=== PATIENT | female | born 1975 | race Caucasian/White ===

== ENCOUNTER 2018-06-25 19:49 | Inpatient (IN) ==
--- NOTE | 2018-06-25 20:33 | ED ---
HPI General Chief Complaint: Shortness of Breath/Dyspnea Stated Complaint: sob/evac Time Seen by Provider: 06/25/18 20:12 Source: patient and EMS Mode of arrival: EMS Limitations: no limitations History of Present Illness 43-year-old female complains of wheezing and shortness of breath and coughing congestion. Patient states that she was treated for pneumonia 2 weeks ago with Z-Dirk, prednisone and albuterol inhaler. Patient has history of COPD. Patient is a smoker. Patient states that the symptoms are better and get worse again for the past several days. Patient visiting from [facility]. Patient states that she also had intermittent substernal chest pain worse with deep coughing and breathing. Patient denies any chest pain radiation. Patient denies palpitation diaphoresis. Patient states that she had mild intermittent headache also. Patient denies any visual change. Patient denies any neck pain. Patient denies any fever chills. EMS was called. Patient was given albuterol treatment x2 prior to arrival. Complaint: Reports shortness of breath, cough, pain with inspiration and chest pain Onset (ago): day(s) Context: Reports recent illness Severity: moderate Consistency/Duration: intermittent Relieving factors: nothing Exacerbating factors: nothing Known history of: Reports COPD Associated symptoms: Reports chest pain, cough and wheezing Treatment prior to arrival: Reports oxygen and bronchodilator Related Data Home Medications Medication Instructions Recorded Confirmed albuterol sulfate 2.5 mg INHALATION Q4H PRN 06/25/18 06/25/18 hydroxyzine HCl 10 mg PO QID PRN 06/25/18 06/25/18 omeprazole magnesium [Prilosec OTC] 20 mg PO DAILY 06/25/18 06/25/18 sertraline [Zoloft] 25 mg PO DAILY 06/25/18 06/25/18 trazodone 100 mg PO DAILY 06/25/18 06/25/18 Allergies Allergy/AdvReac Type Severity Reaction Status Date / Time ketorolac [From Toradol] Allergy Hives Verified 06/25/18 20:03 Penicillins Allergy Hives Verified 06/25/18 20:03 Review of Systems ROS: all other systems reviewed are negative PMFSH Social History Social History Substance History: Active Abuse Second Hand Smoke Exposure: Yes Smoking Status: Current every day smoker Tobacco Type: Cigarettes How Often Do You Have a Drink Containing Alcohol: 2 to 4 times a month Recent Travel in [place] within the Last 8 Weeks: No Recent Out of Country Travel within the Last 8 Weeks: No Substance Abuse Detail Marijuana: Substance Use Status: Active Route Used Substance Abuse: By Mouth and Inhalation Reason for Use: Feels Good Immunization History Tetanus Immunization: Unsure Exam Narrative Exam Narrative: GENERAL: Well-nourished, well-developed patient. SKIN: Focused skin assessment warm/dry. HEAD: Normocephalic. EYES: No scleral icterus. No injection or drainage. NECK: Supple, trachea midline. No JVD or lymphadenopathy. CARDIOVASCULAR: Mild tachycardia rate and rhythm without murmurs, gallops, or rubs. RESPIRATORY: Patient has diffuse rhonchi bilaterally. Mild expiratory wheezes. GASTROINTESTINAL: Abdomen soft, non-tender, nondistended. MUSCULOSKELETAL: No cyanosis, or edema. BACK: Nontender without obvious deformity. No CVA tenderness. Neurologic exam normal. Course Initial Documented Vital Signs Temperature 99.5 F 06/25/18 19:55 Pulse Rate 133 H 06/25/18 19:55 Respiratory Rate 22 06/25/18 19:55 Blood Pressure 110/83 06/25/18 19:55 Pulse Oximetry 57 L 06/25/18 19:55 Last Documented Vital Signs Temperature 99.5 F 06/25/18 19:55 Pulse Rate 109 H 06/25/18 20:35 Respiratory Rate 22 06/25/18 19:55 Blood Pressure 110/83 06/25/18 19:55 Pulse Oximetry 85 L 06/25/18 20:36 Medical Decision Making MDM Narrative Medical decision making narrative: 43-year-old female with coughing wheezing shortness of breath history of COPD and recently with a for pneumonia. Patient was given albuterol treatment by EMS before arrival. Medical Screen Exam Complete: Yes Emergency Medical Condition: Yes Differential Diagnosis Differential Diagnosis: Differential diagnosis including acute exacerbation COPD , bronchitis, pneumonia. Lab Data Lab results reviewed: Yes I reviewed the patient's lab results. Result diagrams: 06/25/18 20:25 06/25/18 20:25 Lab Results 06/25/18 06/25/18 06/25/18 Range/Units 20:25 20:25 20:25 WBC 12.5 H (4.0-11.0) th/mm3 RBC 3.47 L (4.00-5.30) mil/mm3 Hgb 10.0 L (11.6-15.3) gm/dL Hct 30.3 L (35.0-46.0) % MCV 87.2 (80.0-100.0) fL MCH 28.9 (27.0-34.0) pg MCHC 33.2 (32.0-36.0) % RDW 13.4 (11.6-17.2) % Plt Count 279 (150-450) th/mm3 MPV 7.6 (7.0-11.0) fL Neut % (Auto) 79.3 H (16.0-70.0) % Lymph % (Auto) 15.4 (9.0-44.0) % Corson % (Auto) 4.4 (0.0-8.0) % Eos % (Auto) 0.5 (0.0-4.0) % Baso % (Auto) 0.4 (0.0-2.0) % Neut # (Auto) 9.9 H (1.8-7.7) th/mm3 Lymph # (Auto) 1.9 (1.0-4.8) th/mm3 Corson # (Auto) 0.6 (0.0-0.9) th/mm3 Eos # (Auto) 0.1 (0.0-0.4) th/mm3 Baso # (Auto) 0.1 (0.0-0.2) th/mm3 WBC Differential . Differential Comment Auto diff final PT 10.7 (9.8-11.6) sec INR 1.1 Ratio APTT 33.0 H (23.4-31.7) sec Sodium 140 (136-145) meq/L Potassium 3.5 (3.5-5.1) meq/L Chloride 110 H (98-107) meq/L Carbon Dioxide 19.6 L (21.0-32.0) meq/L Anion Gap 10 (5-15) meq/L BUN 8 (7-18) mg/dL Creatinine 0.60 (0.50-1.00) mg/dL Estimated GFR Greater than 89 (>89) mL/min Random Glucose 119 H (74-106) mg/dL Calcium 8.3 L (8.5-10.1) mg/dL Total Bilirubin 0.6 (0.2-1.0) mg/dL AST 58 H (15-37) U/L ALT 27 (10-53) U/L Alkaline Phosphatase 127 H (45-117) U/L Total Creatine Kinase 359 H (26-192) U/L CK-MB (CK-2) 2.4 (0.5-3.6) ng/mL CK-MB (CK-2) % 0.7 (0.0-4.0) % Troponin I 0.10 H (0.02-0.05) ng/mL Total Protein 6.8 (6.4-8.2) g/dL Albumin 2.6 L (3.4-5.0) g/dL Imaging Data Attestation: I personally reviewed and interpreted this imaging study as follows : Radiologist's impression: Chest X-Ray 06/25/18 20:25 CONCLUSION: Bilateral mostly basilar airspace disease. Differential diagnosis includes infection and edema. Trace pleural fluid. Discharge Plan Discharge Disposition Patient Disposition: 30 Still Patient Discharge Details Diagnosis: Pneumonia, Acute exacerbation of chronic obstructive airways disease, Elevated troponin Physicians Team ED Provider: Chris Chakraborty Primary Care Provider: UNKNOWN, Rxs /Orders / Referrals /Forms Prescriptions: No Action albuterol sulfate 1.25 mg/3 mL Solution For Nebulization 2.5 mg INHALATION Q4H PRN (Reason: Shortness Of Breath) RF: 0 trazodone 50 mg Tablet 100 mg PO DAILY RF: 0 sertraline [Zoloft] 25 mg Tablet 25 mg PO DAILY RF: 0 hydroxyzine HCl 10 mg Tablet 10 mg PO QID PRN (Reason: Anxiety) RF: 0 omeprazole magnesium [Prilosec OTC] 20 mg Tablet,Delayed Release (Dr/Ec) 20 mg PO DAILY RF: 0 Status ED Status: With Doctor
[2018-06-25 20:47] LABS: Baso # (Auto) 0.1 th/mm3 (0.0-0.2); Baso % (Auto) 0.4 % (0.0-2.0); Eos # (Auto) 0.1 th/mm3 (0.0-0.4); Eos % (Auto) 0.5 % (0.0-4.0); Hematocrit 30.3 % (35.0-46.0); Lymph # (Auto) 1.9 th/mm3 (1.0-4.8); Lymph % (Auto) 15.4 % (9.0-44.0); Mean Corpuscular HGB Conc 33.2 % (32.0-36.0); Mean Corpuscular Hemoglobin 28.9 pg (27.0-34.0); Mean Corpuscular Volume 87.2 fL (80.0-100.0); Mean Platelet Volume 7.6 fL (7.0-11.0); Mono # (Auto) 0.6 th/mm3 (0.0-0.9); Mono % (Auto) 4.4 % (0.0-8.0); Neut # (Auto) 9.9 th/mm3 (1.8-7.7); Neut % (Auto) 79.3 % (16.0-70.0); Platelet Count 279 th/mm3 (150-450); Red Blood Count 3.47 mil/mm3 (4.00-5.30); Red Cell Distribution Width 13.4 % (11.6-17.2); White Blood Count 12.5 th/mm3 (4.0-11.0)
[2018-06-25 20:57] LABS: INR 1.1 Ratio; Prothrombin Time 10.7 sec (9.8-11.6)
[2018-06-25 20:58] LABS: Alanine Aminotransferase 27 U/L (10-53); Albumin 2.6 g/dL (3.4-5.0); Anion Gap 10 meq/L (5-15); Aspartate Aminotransferase 58 U/L (15-37); Blood Urea Nitrogen 8 mg/dL (7-18); Calcium 8.3 mg/dL (8.5-10.1); Carbon Dioxide 19.6 meq/L (21.0-32.0); Chloride 110 meq/L (98-107); Glomerular Filtration Rate Greater Than 89 mL/min (>89); Glucose,Random 119 mg/dL (74-106); Potassium 3.5 meq/L (3.5-5.1); Sodium 140 meq/L (136-145)
[2018-06-25 21:02] LABS: Alkaline Phosphatase 127 U/L (45-117); Creatine Kinase 359 U/L (26-192); Total Protein 6.8 g/dL (6.4-8.2)
[2018-06-25 21:14] LABS: CKMB Percent 0.7 % (0.0-4.0); Creatine Kinase MB 2.4 ng/mL (0.5-3.6)
--- NOTE | 2018-06-25 21:34 | XR ---
EXAM DATE: 06/25/2018 9:16 PM EST AGE/SEX: 43 years / Female INDICATIONS: Short of breath. CLINICAL DATA: This is the patient's initial encounter. Patient reports that signs and symptoms have been present for 1 day and indicates a pain score of 0/10. MEDICAL/SURGICAL HISTORY: None. None. COMPARISON: No prior exams available for comparison. FINDINGS: There is bilateral mostly basilar airspace disease. Heart size upper limits normal. Small effusions. No pneumothorax. CONCLUSION: Bilateral mostly basilar airspace disease. Differential diagnosis includes infection and edema. Trace pleural fluid. Electronically signed by: Jerry Wallace MD 06/25/2018 9:33 PM EST
[2018-06-25 23:24] LABS: ABG Base Excess -3.8 mmol/L (-2-2); ABG PCO2 35 mmHg (38-42); ABG PO2 40 mmHg (61-120)
[2018-06-25] MEDS ORDERED: Bisacodyl 10 MG Supp RECTAL PRN (23:41)
[2018-06-25] MEDS ORDERED: Acetaminophen 325 MG Tablet PO PRN (23:41)
[2018-06-25] MEDS ORDERED: Vancomycin Consult Pharmacy OTHER PRN (23:44)
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
[2018-06-26] MEDS: Enoxaparin Inj 40 MG/0.4 ML Syringe SQ SCH ×2 (00:24→23:59)
[2018-06-26] MEDS ORDERED: Vancomycin Inj 1,000 MG in Sodium Chlor 0.9% Inj 250 ML IV.SIG ONE (01:00)
[2018-06-26] MEDS: MethylPREDNISolone Sod Succinate Inj 40 MG/ML Vial IV.PUSH SCH ×3 (01:15→17:51)
[2018-06-26] MEDS: Aztreonam Inj 2 GM in Sodium Chloride 0.9% Inj 100 ML IV.SIG SCH ×4 (01:46→23:59)
[2018-06-26 03:52] LABS: Baso % (Auto) 0.2 % (0.0-2.0); Eos % (Auto) 0.2 % (0.0-4.0); Hematocrit 27.5 % (35.0-46.0); Hemoglobin 9.4 gm/dL (11.6-15.3); Lymph # (Auto) 0.7 th/mm3 (1.0-4.8); Lymph % (Auto) 5.8 % (9.0-44.0); Mean Corpuscular HGB Conc 34.3 % (32.0-36.0); Mean Corpuscular Hemoglobin 29.6 pg (27.0-34.0); Mean Corpuscular Volume 86.3 fL (80.0-100.0); Mean Platelet Volume 6.9 fL (7.0-11.0); Mono # (Auto) 0.3 th/mm3 (0.0-0.9); Mono % (Auto) 2.4 % (0.0-8.0); Neut # (Auto) 10.3 th/mm3 (1.8-7.7); Neut % (Auto) 91.4 % (16.0-70.0); Platelet Count 228 th/mm3 (150-450); Red Blood Count 3.18 mil/mm3 (4.00-5.30); Red Cell Distribution Width 13.1 % (11.6-17.2); White Blood Count 11.2 th/mm3 (4.0-11.0)
[2018-06-26] MEDS: Chlorhexidine Gluconate 2% 1 Pack (2 Cloths) TOPICAL SCH (04:00)
[2018-06-26] MEDS ORDERED: Chlorhexidine Gluconate 2% 1 Pack (2 Cloths) TOPICAL PRN (04:00)
[2018-06-26 04:27] LABS: Alanine Aminotransferase 23 U/L (10-53); Albumin 2.3 g/dL (3.4-5.0); Anion Gap 11 meq/L (5-15); Aspartate Aminotransferase 45 U/L (15-37); Blood Urea Nitrogen 6 mg/dL (7-18); Calcium 7.9 mg/dL (8.5-10.1); Carbon Dioxide 21.3 meq/L (21.0-32.0); Chloride 109 meq/L (98-107); Glomerular Filtration Rate Greater Than 89 mL/min (>89); Glucose,Random 130 mg/dL (74-106); Magnesium 1.7 mg/dL (1.5-2.5); Phosphorus 2.4 mg/dL (2.5-4.9); Potassium 3.7 meq/L (3.5-5.1); Sodium 141 meq/L (136-145)
[2018-06-26 04:32] LABS: Alkaline Phosphatase 123 U/L (45-117); Total Protein 6.5 g/dL (6.4-8.2); Troponin I 0.11 ng/mL (0.02-0.05)
[2018-06-26] MEDS: Sertraline 50 MG Tablet PO SCH (08:40)
[2018-06-26] MEDS: Famotidine PF Inj 20 MG/2 ML Vial IV.PUSH SCH ×2 (08:40→21:28)
[2018-06-26] MEDS: Senna/Docusate Sodium 8.6/50 MG Tablet PO SCH ×3 (08:40→21:33)
[2018-06-26] MEDS ORDERED: traZODone 100 MG Tablet PO SCH (09:00)
--- NOTE | 2018-06-26 12:12 | ECG ---
Date Performed: 06/25/2018 Time Performed: 20:09:29 PTAGE: 43 years EKG: SINUS TACHYCARDIA POSSIBLE LEFT ATRIAL ENLARGEMENT NONSPECIFIC ST & T-WAVE ABNORMALITY ABNO RMAL RHYTHM ECG NO PREVIOUS TRACING DOCTOR: Sanjiv Hi Interpretating Date/Time 06/26/2018 12:11:18
--- NOTE | 2018-06-26 12:18 | ECG ---
Date Performed: 06/26/2018 Time Performed: 07:10:28 PTAGE: 43 years EKG: Sinus rhythm POSSIBLE LEFT ATRIAL ENLARGEMENT NONSPECIFIC T-WAVE ABNORMALITY BORDERLINE ECG Since the PREVIOUS TRACING , no significant change noted PREVIOUS TRACIN06/25/2018 20.09 DOCTOR: Sanjiv Hi Interpretating Date/Time 06/26/2018 12:16:49
[2018-06-26 13:33] LABS: ABG PCO2 38 mmHg (38-42); ABG PO2 90 mmHG (61-120)
[2018-06-26] MEDS: Vancomycin Inj 1,250 MG in Sodium Chlor 0.9% Inj 250 ML IV.SIG SCH (14:07)
[2018-06-26 17:31] LABS: Troponin I 0.04 ng/mL (0.02-0.05)
--- NOTE | 2018-06-26 17:54 | ECHRPT ---
Indication: shortness of breath CONCLUSIONS Normal left ventricular size. Wall thickness is normal. The left ventricular systolic function is low normal with an estimated ejection fraction in the rang e of 50- 55%. [id number] mitral valve regurgitation. Mild thickening of the mitral valve leaflets. There is moderate tricuspid regurgitation. The estimated pulmonary arterial pressure is 51 mmHg. BP: / HR: Rhythm: MEASUREMENTS (Male / Female) Normal Values Technical Quality: 2D ECHO LV Diastolic Diameter PLAX 4.1 cm 4.2 - 5.9 / 3.9 - 5.3 cm LV Systolic Diameter PLAX 3.3 cm IVS Diastolic Thickness 1.0 cm 0.6 - 1.0 / 0.6 - 0.9 cm LVPW Diastolic Thickness 1.1 cm 0.6 - 1.0 / 0.6 - 0.9 cm LV Relative Wall Thickness 0.5 RV Internal Dim ED PLAX 2.6 cm LVOT Diameter 2.0 cm Aortic Root Diameter 2.3 cm LA Systolic Diameter LX 4.1 cm 3.0 - 4.0 / 2.7 - 3.8 cm LV Ejection Fraction MOD BP 60.0 % >= 55 % LV Ejection Fraction MOD 4C 66.2 % LV Ejection Fraction 4C AL 66.3 % LV Ejection Fraction MOD 2C 55.6 % LV Ejection Fraction 2C AL 55.2 % M-MODE Aortic Root Diameter MM 2.5 cm LA Systolic Diameter MM 4.0 cm LA Ao Ratio MM 1.6 AV Cusp Separation MM 1.9 cm DOPPLER AV Peak Velocity 154.0 cm/s AV Peak Gradient 9.5 mmHg LVOT Peak Velocity 83.9 cm/s LVOT Peak Gradient 2.8 mmHg AV Area Cont Eq pk 1.7 cm Mitral E Point Velocity 88.4 cm/s Mitral A Point Velocity 93.8 cm/s Mitral E to A Ratio 0.9 LV E' Lateral Velocity 14.6 cm/s Mitral E to LV E' Lateral Ratio 6.1 LV E' Septal Velocity 11.1 cm/s Mitral E to LV E' Septal Ratio 8.0 TR Peak Velocity 321.0 cm/s TR Peak Gradient 41.2 mmHg Right Atrial Pressure 10.0 mmHg Pulmonary Artery Systolic Pressu 51.2 mmHg Right Ventricular Systolic Press 51.2 mmHg PV Peak Velocity 118.0 cm/s PV Peak Gradient 5.6 mmHg FINDINGS LEFT VENTRICLE Normal left ventricular size. Wall thickness is normal. The left ventricular systolic function is low normal with an estimated ejection fraction in the rang e of 50- 55%. RIGHT VENTRICLE Normal right ventricular size and systolic function. LEFT ATRIUM The left atrial size is normal. RIGHT ATRIUM The right atrial size is normal. ATRIAL SEPTUM Normal atrial septal thickness without atrial level shunting by limited color doppler interrogation. AORTA The aortic root and proximal ascending aorta are normal in size on limited imaging. MITRAL VALVE [id number] mitral valve regurgitation. Mild thickening of the mitral valve leaflets. AORTIC VALVE Trileaflet aortic valve. No aortic valve stenosis or regurgitation. TRICUSPID VALVE There is moderate tricuspid regurgitation. The estimated pulmonary arterial pressure is 51 mmHg. PULMONARY VALVE No pulmonary valve regurgitation or stenosis. VESSELS The inferior vena cava is normal in size. PERICARDIUM No pericardial effusion. Xavier Bradshaw MD, FACC, [facility] (Electronically Signed) Final Date:26 June 2018 17:54
[2018-06-27] MEDS: MethylPREDNISolone Sod Succinate Inj 40 MG/ML Vial IV.PUSH SCH ×3 (00:02→16:37)
[2018-06-27] MEDS: Vancomycin Inj 1,250 MG in Sodium Chlor 0.9% Inj 250 ML IV.SIG SCH ×2 (01:29→14:04)
[2018-06-27] MEDS: Chlorhexidine Gluconate 2% 1 Pack (2 Cloths) TOPICAL SCH (04:05)
--- NOTE | 2018-06-27 05:39 | XR ---
EXAM DATE: 06/27/2018 5:28 AM EST AGE/SEX: 43 years / Female INDICATIONS: Shortness of breath. CLINICAL DATA: This is the patient's subsequent encounter. Patient reports that signs and symptoms h ave been present for 3 days and indicates a pain score of Nonresponsive. MEDICAL/SURGICAL HISTORY: None. None. COMPARISON: [facility] [place] 1[place] SINGLE AP, 06/25/2018. . FINDINGS: Single AP view the chest. Increase in bilateral diffuse pulmonary parenchymal opacity. Cardiomediasti nal silhouette unchanged. No evidence of pleural effusion or pneumothorax. CONCLUSION: Increased bilateral diffuse pulmonary opacity. Electronically signed by: Mika Garcia MD 06/27/2018 5:37 AM EST
[2018-06-27 05:50] LABS: Baso % (Auto) 0.3 % (0.0-2.0); Hematocrit 27.6 % (35.0-46.0); Hemoglobin 9.5 gm/dL (11.6-15.3); Lymph # (Auto) 1.1 th/mm3 (1.0-4.8); Lymph % (Auto) 10.4 % (9.0-44.0); Mean Corpuscular HGB Conc 34.5 % (32.0-36.0); Mean Corpuscular Hemoglobin 30.6 pg (27.0-34.0); Mean Corpuscular Volume 88.6 fL (80.0-100.0); Mean Platelet Volume 7.3 fL (7.0-11.0); Mono # (Auto) 0.3 th/mm3 (0.0-0.9); Mono % (Auto) 3.4 % (0.0-8.0); Neut # (Auto) 8.7 th/mm3 (1.8-7.7); Neut % (Auto) 85.9 % (16.0-70.0); Platelet Count 235 th/mm3 (150-450); Red Blood Count 3.12 mil/mm3 (4.00-5.30); Red Cell Distribution Width 13.4 % (11.6-17.2); White Blood Count 10.2 th/mm3 (4.0-11.0)
--- NOTE | 2018-06-27 07:26 | P.PNCC ---
Subjective Subjective Remarks/Hospital Course: 06/27: Afebrile patient remains on 100% nonrebreather. Aggressive pulmonary toileting underway. ABG this a.m. is pending. O2 saturation now 99%. Patient continues on broad-spectrum antibiotics but noted chest x-ray worsening opacities this a.m.. Leukocytosis much improved. Patient denies any angina. Tolerating a clear liquid diet. Objective Vital Signs / I&O: Vital Signs 06/26/18 07:43 06/26/18 07:44 06/26/18 08:00 Temperature 98.4 F Pulse Rate 88 93 H Respiratory Rate 36 H 26 H Blood Pressure 101/66 Pulse Oximetry 92 L 94 L 06/26/18 10:00 06/26/18 11:50 06/26/18 12:00 Temperature 98.2 F Pulse Rate 91 H 82 84 Respiratory Rate 25 H 26 H Blood Pressure 101/61 Pulse Oximetry 99 06/26/18 14:00 06/26/18 16:00 06/26/18 16:16 Temperature 98.0 F Pulse Rate 87 86 84 Respiratory Rate 27 H 26 H Blood Pressure 100/56 L Pulse Oximetry 96 06/26/18 18:00 06/26/18 19:55 06/26/18 20:00 Temperature 98.6 F Pulse Rate 96 H 89 94 H Respiratory Rate 24 26 H Blood Pressure 117/57 L Pulse Oximetry 99 99 06/26/18 22:00 06/27/18 00:00 06/27/18 00:24 Temperature 98.3 F Pulse Rate 92 H 85 84 Respiratory Rate 26 H 21 Blood Pressure 93/59 L Pulse Oximetry 98 06/27/18 02:00 06/27/18 04:00 06/27/18 04:01 Temperature 98.1 F Pulse Rate 91 H 82 85 Respiratory Rate 20 24 Blood Pressure 99/65 L Pulse Oximetry 99 06/27/18 04:02 06/27/18 06:00 Temperature Pulse Rate 85 Respiratory Rate Blood Pressure Pulse Oximetry 98 Intake & Output 06/26/18 06/27/18 06/27/18 18:59 06:59 18:59 Intake Total 962.5 / 962.5 842.5 / 842.5 Output Total 2450 / 2450 800 / 800 Balance -1487.5 / -1487.5 42.5 / 42.5 Weight 63.4 kg Intake: IV 462.5 / 462.5 362.5 / 362.5 Azactam Inj 2 GM In NS Inj 100 200 / 200 100 / 100 ML @ 200 mls/hr IV.SIG Q8H [facility] Rx#:[id number] Vancomycin Inj 1,250 MG In NS 262.5 / 262.5 262.5 / 262.5 Inj 250 ML @ 250 mls/hr IV.SIG Q12H [facility] Rx#:[id number] Oral 500 / 500 480 / 480 Output: Urine 2450 / 2450 800 / 800 Other: Date of Last Bowel Movement 06/25/18 06/25/18 # Bowel Movements 0 0 Result Diagrams: 06/27/18 04:08 06/26/18 03:41 Imaging: Laboratory Results WBC 10.2 th/mm3 (4.0-11.0) 06/27/18 04:08 RBC 3.12 mil/mm3 (4.00-5.30) L 06/27/18 04:08 Hgb 9.5 gm/dL (11.6-15.3) L 06/27/18 04:08 Hct 27.6 % (35.0-46.0) L 06/27/18 04:08 MCV 88.6 fL (80.0-100.0) 06/27/18 04:08 MCH 30.6 pg (27.0-34.0) 06/27/18 04:08 MCHC 34.5 % (32.0-36.0) 06/27/18 04:08 RDW 13.4 % (11.6-17.2) 06/27/18 04:08 Plt Count 235 th/mm3 (150-450) 06/27/18 04:08 MPV 7.3 fL (7.0-11.0) 06/27/18 04:08 Neut % (Auto) 85.9 % (16.0-70.0) H 06/27/18 04:08 Lymph % (Auto) 10.4 % (9.0-44.0) 06/27/18 04:08 Cross % (Auto) 3.4 % (0.0-8.0) 06/27/18 04:08 Eos % (Auto) 0.0 % (0.0-4.0) 06/27/18 04:08 Baso % (Auto) 0.3 % (0.0-2.0) 06/27/18 04:08 Neut # (Auto) 8.7 th/mm3 (1.8-7.7) H 06/27/18 04:08 Lymph # (Auto) 1.1 th/mm3 (1.0-4.8) 06/27/18 04:08 [place] # (Auto) 0.3 th/mm3 (0.0-0.9) 06/27/18 04:08 Eos # (Auto) 0.0 th/mm3 (0.0-0.4) 06/27/18 04:08 Baso # (Auto) 0.0 th/mm3 (0.0-0.2) 06/27/18 04:08 WBC Differential . 06/27/18 04:08 Differential Comment Auto diff final 06/27/18 04:08 PT 10.7 sec (9.8-11.6) 06/25/18 20:25 INR 1.1 Ratio 06/25/18 20:25 APTT 33.0 sec (23.4-31.7) H 06/25/18 20:25 Puncture Site Right radial 06/26/18 13:20 Patient Temperature 98.6 06/26/18 13:20 O2 Saturation 93 % (90-100) 06/26/18 13:20 ABG pH 7.37 (7.380-7.420) L 06/26/18 13:20 ABG pCO2 38 mmHg (38-42) 06/26/18 13:20 ABG pO2 90 mmHG (61-120) 06/26/18 13:20 ABG HCO3 21 mmol/L (22-26) L 06/26/18 13:20 ABG O2 Content 11.8 Vol % (12.0-20.0) L 06/26/18 13:20 ABG Base Excess -3.0 mmol/L (-2-2) L 06/26/18 13:20 ABG Methemoglobin 2.1 % (0-2) H 06/26/18 13:20 Jaguar Test Present 06/26/18 13:20 Hemoglobin 8.9 G/DL (12.0-16.0) L 06/26/18 13:20 Carboxyhemoglobin 0.9 % (0-4) 06/26/18 13:20 O2 Delivery Device Nrm 06/26/18 13:20 Liter Flow 15.00 L/M 06/26/18 13:20 Inspired O2 100 % 06/26/18 13:20 Critical Value No 06/26/18 13:20 Sodium 141 meq/L (136-145) 06/26/18 03:41 Potassium 3.7 meq/L (3.5-5.1) 06/26/18 03:41 Chloride 109 meq/L (98-107) H 06/26/18 03:41 Carbon Dioxide 21.3 meq/L (21.0-32.0) 06/26/18 03:41 Anion Gap 11 meq/L (5-15) 06/26/18 03:41 BUN 6 mg/dL (7-18) L 06/26/18 03:41 Creatinine 0.50 mg/dL (0.50-1.00) 06/26/18 03:41 Estimated GFR Greater than 89 mL/min (>89) 06/26/18 03:41 Random Glucose 130 mg/dL (74-106) H 06/26/18 03:41 Calcium 7.9 mg/dL (8.5-10.1) L 06/26/18 03:41 Phosphorus 2.4 mg/dL (2.5-4.9) L 06/26/18 03:41 Magnesium 1.7 mg/dL (1.5-2.5) 06/26/18 03:41 Total Bilirubin 0.8 mg/dL (0.2-1.0) 06/26/18 03:41 AST 45 U/L (15-37) H 06/26/18 03:41 ALT 23 U/L (10-53) 06/26/18 03:41 Alkaline Phosphatase 123 U/L (45-117) H 06/26/18 03:41 Total Creatine Kinase 359 U/L (26-192) H 06/25/18 20:25 CK-MB (CK-2) 2.4 ng/mL (0.5-3.6) 06/25/18 20:25 CK-MB (CK-2) % 0.7 % (0.0-4.0) 06/25/18 20:25 Troponin I 0.04 ng/mL (0.02-0.05) 06/26/18 16:46 B-Natriuretic Peptide 484 pg/mL (0-100) H 06/25/18 20:25 Total Protein 6.5 g/dL (6.4-8.2) 06/26/18 03:41 Albumin 2.3 g/dL (3.4-5.0) L 06/26/18 03:41 Beta HCG, Quant 2 mIU/mL (0-5) 06/26/18 16:46 Nasal Screen MRSA (PCR) Not detected (Negative) 06/26/18 00:50 Impressions Chest X-Ray 06/27/18 04:00 CONCLUSION: Increased bilateral diffuse pulmonary opacity. Objective Remarks: GENERAL: This is a well-developed well-nourished female resting comfortably in bed in no respiratory distress SKIN: Warm and dry. HEAD: Atraumatic. Normocephalic. EYES: Pupils equal and round. No scleral icterus. No injection or drainage. ENT: No nasal bleeding or discharge. Mucous membranes pink and moist. NECK: Trachea midline. No JVD. CARDIOVASCULAR: Normal rate, regular rhythm. RESPIRATORY: No accessory muscle use. Coarse scattered rhonchi bilaterally. Breath sounds equal bilaterally. GASTROINTESTINAL: Abdomen soft, non-tender, nondistended. No guarding. Normal active bowel sounds. MUSCULOSKELETAL: Extremities without clubbing, cyanosis, or edema. No obvious deformities. NEUROLOGICAL: Lethargic but easily arousable. RASS 0. No gross focal/sensory deficits. Follows commands in all 4 extremities. Assessment and Plan - Assessment and Plan Plan: NEURO: Depression Anxiety disorder Continue sertraline 25 mg p.o. daily, trazodone 100 mg p.o. at night, hydroxyzine 10 mg p.o. 4 times daily PRN. RESP: Acute hypoxia respiratory failure, requiring BiPAP Community-acquired pneumonia COPD Tobacco abuse Currently on nonrebreather. Wean FiO2 will intubate if respiratory status declines. DuoNeb every 4 hours. Albuterol every 2 hours as needed. Solu-Medrol 40 mg IV every 8 hours Antibiotics as per below Tobacco cessation counseling discussed CV: Monitor blood pressure and telemetry. EKG no ischemic changes or ST elevation. Mild troponin elevation may be secondary to respiratory distress and hypoxia, will trend. Her described chest discomfort is not typical for cardiac and she has hx hives with NSAID so will not give ASA for now. 06/25 2D Echo-left ventricular ejection fraction 50-55%, trace to mild MR, moderate TR, PAP 51 GI: Full liquid diet Zofran for nausea FEN/RENAL: Voiding. Normal renal functin. Monitor electrolytes and replace as indicated per ICU electrolyte replacement protocol. ID: Community acquired pneumonia Persists despite outpatient azithromycin. Received levaquin in the ED, which will continue for atypical/legionella coverage. Will also treat with aztreonam ( PCN allergy) and vancomycin as this could represent post-viral pneumonia. Influenza screen negative. Follow-up blood cultures. 06/25 urine Legionella pneumococcal antigens-negative HEME: Chronic anemia. ENDO: Euglycemic. PROPH: SCDs and Lovenox 40 mg subcu daily for DVT prophylaxis. Famotidine 20 mill grams IV every 12 hours for stress ulcer prophylaxis. ACCESS: Peripheral IV providing adequate access at this time. FULL CODE Patient has significant bilateral pneumonia superimposed over COPD. Hypoxic requiring BiPAP and is at high risk for further deterioration. Will need to remain in ICU. My billing statement This patient remains critically ill with one or more organ systems which are or may become a threat to life. I have spent in excess of 37 minutes discontinuously in the care and management of this patient. This time is exclusive of procedures, and includes, but is not limited to, evaluation of the patient, review of the medical record, discussions with family, consultants, nursing staff, or respiratory therapy, and documentation in the medical record.
[2018-06-27] MEDS: Aztreonam Inj 2 GM in Sodium Chloride 0.9% Inj 100 ML IV.SIG SCH ×2 (08:58→16:36)
[2018-06-27] MEDS: Levofloxacin 500 mg Premix Inj 500 MG/100 ML PIGGYBACK IV.SIG SCH (08:58)
[2018-06-27] MEDS: Sertraline 50 MG Tablet PO SCH (08:59)
[2018-06-27] MEDS: Famotidine PF Inj 20 MG/2 ML Vial IV.PUSH SCH ×2 (08:59→20:03)
[2018-06-27] MEDS: Senna/Docusate Sodium 8.6/50 MG Tablet PO SCH ×2 (08:59→20:03)
[2018-06-27 12:15] LABS: ABG Base Excess 2.4 mmol/L (-2-2); ABG PCO2 44 mmHg (38-42); ABG PO2 71 mmHG (61-120)
[2018-06-27] MEDS ORDERED: Pharmacy Ordered Lab Info OTHER ONE (13:45)
[2018-06-27 14:47] LABS: Calcium 8.7 mg/dL (8.5-10.1); Carbon Dioxide 26.3 meq/L (21.0-32.0); Troponin I 0.04 ng/mL (0.02-0.05); Vancomycin,Trough 10.6 mcg/mL (5.0-10.0)
[2018-06-27 14:54] LABS: Potassium 2.8 meq/L (3.5-5.1)
[2018-06-27] MEDS ORDERED: Potassium Chlor 40 mEq Premix 40 MEQ/100 ML PIGGYBACK IV.SIG PRN ×2 (18:13)
[2018-06-27] MEDS ORDERED: Potassium Chlor 20 mEq Premix 20 MEQ/100 ML PIGGYBACK IV.SIG PRN ×2 (18:13)
[2018-06-27] MEDS ORDERED: Magnesium Sulfate Inj 4 GM in Sodium Chlor 0.9% Inj 92 ML IV.SIG PRN (18:13)
[2018-06-27] MEDS ORDERED: Sodium Phosphate Inj 30 MMOL in Sodium Chlor 0.9% Inj 250 ML IV.SIG PRN (18:13)
[2018-06-27] MEDS ORDERED: Magnesium Sulfate Inj 2 GM in Sodium Chlor 0.9% Inj 96 ML IV.SIG PRN (18:13)
[2018-06-27] MEDS ORDERED: Magnesium Oxide 400 MG Tablet PO PRN (18:13)
[2018-06-27] MEDS ORDERED: Potassium Phosphate 500 MG Soluble Tablet PO PRN ×2 (18:13)
[2018-06-27] MEDS ORDERED: Potassium Phosphate Inj 30 MMOL in Sodium Chlor 0.9% Inj 250 ML IV.SIG PRN (18:13)
[2018-06-27] MEDS ORDERED: Potassium Chloride 25 MEQ Effervescent Tablet PO PRN (18:13)
[2018-06-27] MEDS ORDERED: ALPRAZolam 0.25 MG Tablet PO PRN (18:27)
[2018-06-27] MEDS: Potassium Chlor 10 mEq Premix 10 MEQ/100 ML PIGGYBACK IV.SIG SCH ×3 (18:36→23:05)
[2018-06-27] MEDS: traZODone 100 MG Tablet PO SCH (20:03)
[2018-06-28] MEDS: Enoxaparin Inj 40 MG/0.4 ML Syringe SQ SCH ×2 (00:52→23:21)
[2018-06-28] MEDS: MethylPREDNISolone Sod Succinate Inj 40 MG/ML Vial IV.PUSH SCH ×3 (00:52→18:24)
[2018-06-28] MEDS: Aztreonam Inj 2 GM in Sodium Chloride 0.9% Inj 100 ML IV.SIG SCH ×4 (00:52→23:20)
[2018-06-28] MEDS: Potassium Chlor 10 mEq Premix 10 MEQ/100 ML PIGGYBACK IV.SIG SCH ×3 (01:01→03:12)
[2018-06-28 04:25] LABS: Baso % (Auto) 0.1 % (0.0-2.0); Eos % (Auto) 0.4 % (0.0-4.0); Hematocrit 27.3 % (35.0-46.0); Hemoglobin 9.2 gm/dL (11.6-15.3); Lymph # (Auto) 1.1 th/mm3 (1.0-4.8); Lymph % (Auto) 11.2 % (9.0-44.0); Mean Corpuscular HGB Conc 33.6 % (32.0-36.0); Mean Corpuscular Hemoglobin 29.4 pg (27.0-34.0); Mean Corpuscular Volume 87.4 fL (80.0-100.0); Mono # (Auto) 0.4 th/mm3 (0.0-0.9); Neut % (Auto) 84.3 % (16.0-70.0); Platelet Count 255 th/mm3 (150-450); Red Blood Count 3.13 mil/mm3 (4.00-5.30); Red Cell Distribution Width 13.3 % (11.6-17.2); White Blood Count 9.5 th/mm3 (4.0-11.0)
[2018-06-28] MEDS: Vancomycin Inj 1,250 MG in Sodium Chlor 0.9% Inj 250 ML IV.SIG SCH (04:25)
[2018-06-28 04:48] LABS: Anion Gap 7 meq/L (5-15); Blood Urea Nitrogen 13 mg/dL (7-18); Calcium 8.5 mg/dL (8.5-10.1); Carbon Dioxide 24.9 meq/L (21.0-32.0); Chloride 112 meq/L (98-107); Glomerular Filtration Rate Greater Than 89 mL/min (>89); Glucose,Random 125 mg/dL (74-106); Magnesium 2.1 mg/dL (1.5-2.5); Phosphorus 3.1 mg/dL (2.5-4.9); Potassium 4.4 meq/L (3.5-5.1); Sodium 144 meq/L (136-145)
[2018-06-28] MEDS: Chlorhexidine Gluconate 2% 1 Pack (2 Cloths) TOPICAL SCH (04:48)
[2018-06-28] MEDS: Levofloxacin 500 mg Premix Inj 500 MG/100 ML PIGGYBACK IV.SIG SCH (08:27)
[2018-06-28] MEDS: Sertraline 50 MG Tablet PO SCH (08:28)
[2018-06-28] MEDS: Senna/Docusate Sodium 8.6/50 MG Tablet PO SCH ×2 (08:28→20:20)
[2018-06-28] MEDS: Famotidine PF Inj 20 MG/2 ML Vial IV.PUSH SCH ×2 (08:28→20:19)
--- NOTE | 2018-06-28 11:18 | P.PNCC ---
Subjective Subjective Remarks/Hospital Course: 06/27: Afebrile patient remains on 100% nonrebreather. Aggressive pulmonary toileting underway. ABG this a.m. is pending. O2 saturation now 99%. Patient continues on broad-spectrum antibiotics but noted chest x-ray worsening opacities this a.m.. Leukocytosis much improved. Patient denies any angina. Tolerating a clear liquid diet. 06/28: Patient more alert this morning interacting. Requesting increase in anti -anxiety medications. FiO2 requirement significantly decreased. Now on nasal chest x-ray pending in a.m.. Aggressive pulmonary toileting continued. Incentive spirometry encouraged. Objective Vital Signs / I&O: Vital Signs 06/27/18 12:00 06/27/18 14:00 06/27/18 15:38 Temperature 98.7 F Pulse Rate 102 H 102 H 96 H Respiratory Rate 24 Blood Pressure 104/70 Pulse Oximetry 95 06/27/18 16:00 06/27/18 18:00 06/27/18 19:00 Temperature 98.6 F Pulse Rate 113 H 113 H 108 H Respiratory Rate 30 H 24 Blood Pressure 104/68 116/74 Pulse Oximetry 95 95 06/27/18 20:19 06/27/18 21:25 06/27/18 23:00 Temperature Pulse Rate 94 H 97 H 82 Respiratory Rate 19 24 18 Blood Pressure 99/59 L 102/61 Pulse Oximetry 06/28/18 00:00 06/28/18 00:32 06/28/18 03:00 Temperature 98.4 F Pulse Rate 84 81 83 Respiratory Rate 12 20 24 Blood Pressure 112/66 109/68 Pulse Oximetry 06/28/18 03:41 06/28/18 04:00 06/28/18 07:53 Temperature Pulse Rate 86 93 H 98 H Respiratory Rate 22 20 20 Blood Pressure 104/63 Pulse Oximetry 95 96 06/28/18 08:00 Temperature 98.8 F Pulse Rate 95 H Respiratory Rate 22 Blood Pressure 116/73 Pulse Oximetry 97 Intake & Output 06/27/18 06/28/18 06/28/18 18:59 06:59 18:59 Intake Total 1812.5 / 1812.5 1184.5 / 1184.5 Output Total 1875 / 1875 800 / 800 Balance -62.5 / -62.5 384.5 / 384.5 Weight 63.6 kg Intake: IV 562.5 / 562.5 962.5 / 962.5 Azactam Inj 2 GM In NS Inj 100 200 / 200 100 / 100 ML @ 200 mls/hr IV.SIG Q8H [facility] Rx#:[id number] Levaquin 500 mg Premix Inj 500 100 / 100 mg In 100 ml @ 100 mls/hr IV. SIG Q24H [facility] Rx#:[id number] KCl 10 mEq Premix Inj 10 meq In 600 / 600 100 ml @ 100 mls/hr IV.SIG Q1H [facility] Rx#:[id number] Vancomycin Inj 1,250 MG In NS 262.5 / 262.5 262.5 / 262.5 Inj 250 ML @ 250 mls/hr IV.SIG Q12H [facility] Rx#:[id number] Oral 1250 / 1250 222 / 222 Output: Urine 1875 / 1875 800 / 800 Other: Date of Last Bowel Movement 06/25/18 06/25/18 06/25/18 # Bowel Movements 0 Result Diagrams: 06/28/18 04:10 06/28/18 04:10 Other Results: Laboratory Results WBC 9.5 th/mm3 (4.0-11.0) 06/28/18 04:10 RBC 3.13 mil/mm3 (4.00-5.30) L 06/28/18 04:10 Hgb 9.2 gm/dL (11.6-15.3) L 06/28/18 04:10 Hct 27.3 % (35.0-46.0) L 06/28/18 04:10 MCV 87.4 fL (80.0-100.0) 06/28/18 04:10 MCH 29.4 pg (27.0-34.0) 06/28/18 04:10 MCHC 33.6 % (32.0-36.0) 06/28/18 04:10 RDW 13.3 % (11.6-17.2) 06/28/18 04:10 Plt Count 255 th/mm3 (150-450) 06/28/18 04:10 MPV 7.0 fL (7.0-11.0) 06/28/18 04:10 Neut % (Auto) 84.3 % (16.0-70.0) H 06/28/18 04:10 Lymph % (Auto) 11.2 % (9.0-44.0) 06/28/18 04:10 [place] % (Auto) 4.0 % (0.0-8.0) 06/28/18 04:10 Eos % (Auto) 0.4 % (0.0-4.0) 06/28/18 04:10 Baso % (Auto) 0.1 % (0.0-2.0) 06/28/18 04:10 Neut # (Auto) 8.0 th/mm3 (1.8-7.7) H 06/28/18 04:10 Lymph # (Auto) 1.1 th/mm3 (1.0-4.8) 06/28/18 04:10 [place] # (Auto) 0.4 th/mm3 (0.0-0.9) 06/28/18 04:10 Eos # (Auto) 0.0 th/mm3 (0.0-0.4) 06/28/18 04:10 Baso # (Auto) 0.0 th/mm3 (0.0-0.2) 06/28/18 04:10 WBC Differential . 06/28/18 04:10 Differential Comment Auto diff final 06/28/18 04:10 PT 10.7 sec (9.8-11.6) 06/25/18 20:25 INR 1.1 Ratio 06/25/18 20:25 APTT 33.0 sec (23.4-31.7) H 06/25/18 20:25 Puncture Site Right radial 06/27/18 12:05 Patient Temperature 98.6 06/27/18 12:05 O2 Saturation 91 % (90-100) 06/27/18 12:05 ABG pH 7.40 (7.380-7.420) 06/27/18 12:05 ABG pCO2 44 mmHg (38-42) H 06/27/18 12:05 ABG pO2 71 mmHG (61-120) 06/27/18 12:05 ABG HCO3 27 mmol/L (22-26) H 06/27/18 12:05 ABG O2 Content 12.0 Vol % (12.0-20.0) 06/27/18 12:05 ABG Base Excess 2.4 mmol/L (-2-2) H 06/27/18 12:05 ABG Methemoglobin 2.1 % (0-2) H 06/27/18 12:05 Jaguar Test Present 06/27/18 12:05 Hemoglobin 9.3 G/DL (12.0-16.0) L 06/27/18 12:05 Carboxyhemoglobin 0.7 % (0-4) 06/27/18 12:05 O2 Delivery Device Simple mask 06/27/18 12:05 Liter Flow 8.00 L/M 06/27/18 12:05 Inspired O2 100 % 06/26/18 13:20 Critical Value No 06/27/18 12:05 Sodium 144 meq/L (136-145) 06/28/18 04:10 Potassium 4.4 meq/L (3.5-5.1) D 06/28/18 04:10 Chloride 112 meq/L (98-107) H 06/28/18 04:10 Carbon Dioxide 24.9 meq/L (21.0-32.0) 06/28/18 04:10 Anion Gap 7 meq/L (5-15) 06/28/18 04:10 BUN 13 mg/dL (7-18) 06/28/18 04:10 Creatinine 0.50 mg/dL (0.50-1.00) 06/28/18 04:10 Estimated GFR Greater than 89 mL/min (>89) 06/28/18 04:10 Random Glucose 125 mg/dL (74-106) H 06/28/18 04:10 Lactic Acid 0.9 mmol/L (0.4-2.0) 06/28/18 04:10 Calcium 8.5 mg/dL (8.5-10.1) 06/28/18 04:10 Phosphorus 3.1 mg/dL (2.5-4.9) 06/28/18 04:10 Magnesium 2.1 mg/dL (1.5-2.5) 06/28/18 04:10 Total Bilirubin 0.8 mg/dL (0.2-1.0) 06/26/18 03:41 AST 45 U/L (15-37) H 06/26/18 03:41 ALT 23 U/L (10-53) 06/26/18 03:41 Alkaline Phosphatase 123 U/L (45-117) H 06/26/18 03:41 Total Creatine Kinase 359 U/L (26-192) H 06/25/18 20:25 CK-MB (CK-2) 2.4 ng/mL (0.5-3.6) 06/25/18 20:25 CK-MB (CK-2) % 0.7 % (0.0-4.0) 06/25/18 20:25 Troponin I 0.04 ng/mL (0.02-0.05) 06/27/18 14:06 B-Natriuretic Peptide 491 pg/mL (0-100) H 06/28/18 08:12 Total Protein 6.5 g/dL (6.4-8.2) 06/26/18 03:41 Albumin 2.3 g/dL (3.4-5.0) L 06/26/18 03:41 Beta HCG, Quant 2 mIU/mL (0-5) 06/26/18 16:46 Nasal Screen MRSA (PCR) Not detected (Negative) 06/26/18 00:50 Vancomycin Trough 10.6 mcg/mL (5.0-10.0) H 06/27/18 14:06 Impressions Chest X-Ray 06/27/18 04:00 CONCLUSION: Increased bilateral diffuse pulmonary opacity. Objective Remarks: GENERAL: This is a well-developed well-nourished female resting comfortably in bed in no acute distress SKIN: Warm and dry. HEAD: Atraumatic. Normocephalic. EYES: Pupils equal and round. No scleral icterus. No injection or drainage. ENT: No nasal bleeding or discharge. Mucous membranes pink and moist. NECK: Trachea midline. No JVD. CARDIOVASCULAR: Normal rate, regular rhythm. RESPIRATORY: No accessory muscle use. Coarse scattered rhonchi bilaterally. Breath sounds equal bilaterally. GASTROINTESTINAL: Abdomen soft, non-tender, nondistended. No guarding. Normal active bowel sounds. MUSCULOSKELETAL: Extremities without clubbing, cyanosis, or edema. No obvious deformities. NEUROLOGICAL: Awake and alert. RASS 0. No gross focal/sensory deficits. Follows commands in all 4 extremities. Assessment and Plan - Assessment and Plan Plan: NEURO: Depression Anxiety disorder Continue sertraline 25 mg p.o. daily, trazodone 100 mg p.o. at night, hydroxyzine 10 mg p.o. 4 times daily PRN. Xanax 0.25 mg every 6 hours as needed for agitation and anxiety RESP: Acute hypoxia respiratory failure, requiring BiPAP Community-acquired pneumonia COPD Tobacco abuse Simple facemask now weaned down to nasal cannula at 6 L, continue to wean DuoNeb every 4 hours. Albuterol every 2 hours as needed. Solu-Medrol 40 mg IV every 8 hours Antibiotics as per below Tobacco cessation counseling discussed Pulmonology consult CV: Monitor blood pressure and telemetry. EKG no ischemic changes or ST elevation. Mild troponin elevation may be secondary to respiratory distress and hypoxia, will trend. Her described chest discomfort is not typical for cardiac and she has hx hives with NSAID so will not give ASA for now. 06/25 2D Echo-left ventricular ejection fraction 50-55%, trace to mild MR, moderate TR, PAP 51 GI: Advance to regular diet Zofran for nausea FEN/RENAL: Voiding. Normal renal functin. Monitor electrolytes and replace as indicated per ICU electrolyte replacement protocol. ID: Community acquired pneumonia Persists despite outpatient azithromycin. Received levaquin in the ED, which will continue for atypical/legionella coverage. Will also treat with aztreonam ( PCN allergy) and vancomycin as this could represent post-viral pneumonia. Influenza screen negative. Follow-up blood cultures. 06/25 urine Legionella pneumococcal antigens-negative HEME: Chronic anemia. ENDO: Euglycemic. PROPH: SCDs and Lovenox 40 mg subcu daily for DVT prophylaxis. Famotidine 20 mill grams IV every 12 hours for stress ulcer prophylaxis. ACCESS: Peripheral IV providing adequate access at this time. FULL CODE Level 2 follow-up plan transfer to [facility] in a.m., plan transfer to [facility] floor. Discussed Condition With: Patient and SENIOR [employer] DEVELOPER at bedside
[2018-06-28] MEDS: Vancomycin Inj 1,000 MG in Sodium Chlor 0.9% Inj 250 ML IV.SIG SCH ×2 (11:59→20:19)
[2018-06-28] MEDS: ALPRAZolam 0.25 MG Tablet PO PRN ×2 (13:05→18:54)
--- NOTE | 2018-06-28 17:06 | MB ---
cc: Jaymie Tompkins MD DATE: 06/28/2018 REASON FOR CONSULTATION: Pneumonia and hypoxemia. HISTORY OF PRESENT ILLNESS: This is a 43-year-old white female who is from [place]. Apparently, she has been admitted with complaints of shortness of breath, cough with yellow sputum production, fevers and chills, which started more than 2 weeks ago. The patient was initially seen at the Urgent Care in [place] and was noted to have pneumonia and was given oral antibiotics including Zithromax and a prednisone prescription which she took and did not improve. Upon arrival and in [facility], she was still coughing up greenish yellow mucus, had fevers and chills and thus, came to the ER and subsequently was admitted. She has pain along the upper chest, abdomen, back. She denies any hemoptysis. Denies leg swelling. She has been started on antibiotics including Levaquin intravenously and Azactam, since SHE IS ALLERGIC TO PENICILLIN. BiPAP was placed and subsequently she was switched to a simple mask at 50%. She is still quite short of breath. She has wheezing and she is orthopneic. Today's x-ray shows extensive bilateral pulmonary infiltrates. There is no CAT scan to review. PAST MEDICAL HISTORY: Significant for cervical cancer, history of osteomyelitis of the jaw, ulnar nerve injury. PAST SURGICAL HISTORY: History of a hysterectomy, appendectomy and a cholecystectomy in the past, and the surgery on her jaw. HABITS: The patient smokes, has done so for over 25 years, about a pack a day. Alcohol use moderate. Also used marijuana. FAMILY HISTORY: Significant for lung cancer in mother. MEDICATIONS: List was reviewed from the chart. REVIEW OF SYSTEMS: Reveals the patient does have some cough, wheezing. She has lost weight, has nausea. No leg edema. No joint pains. No urinary symptoms. Denies any headaches or blackout spells. No depression or anxiety. PHYSICAL EXAMINATION: GENERAL: This is an averagely built, middle-aged, lady who was alert, pale and mildly dyspneic at rest. VITAL SIGNS: Blood pressure is 128/70, pulse was 110, respirations 24, temperature 99. HEENT: Head normocephalic. Pupils reactive and equal. Throat is injected. Nasal mucosa is clear. NECK: Supple, no bruits or thyroid enlargement or lymphadenopathy. CHEST: Inspiratory and expiratory wheezes were scattered throughout both lung davey with occasional crackles in the right mid and lower chest. HEART: Sounds were regular, S1, S2 with no murmur. No S3 gallop. ABDOMEN: Soft, scaphoid, without masses, no organomegaly or tenderness. Bowel sounds are active. EXTREMITIES: Revealed no lesions, no edema, no calf tenderness. Reflexes were 1+. No gross motor deficits. SKIN: No lesions were observed. NEUROLOGIC: The patient was alert, oriented, and cooperative and with normal affect. IMPRESSION: 1. Bilateral pulmonary infiltrates, possible atypical pneumonia syndrome. 2. Probable underlying chronic obstructive pulmonary disease. 3. Respiratory failure. 4. Chronic anemia. 5. Nicotine dependency. PLAN: The patient has been counseled about quitting cigarette smoking. Nebulized DuoNeb solution added every 4 hours. Continue with antibiotic coverage as ordered. Blood gas studies to be done. She will be placed on BiPAP at night if she desaturates below 90%. PFT will be done when she is clinically stable. CT scan of the chest with contrast was ordered as well, and a CBC and basic metabolic profile. Solu-Medrol 40 mg every 8 hours will be continued. Thank you, Dr. Tim, for this consultation. MD OSIRIS Alexander/chandler , 03:11 PM , 03:23 PM
[2018-06-28] MEDS: traZODone 100 MG Tablet PO SCH (20:20)
--- NOTE | 2018-06-28 22:42 | CT ---
EXAM DATE: 06/28/2018 10:33 PM EST AGE/SEX: 43 years / Female INDICATIONS: Lung infiltrate. CLINICAL DATA: This is the patient's subsequent encounter. Patient reports that signs and symptoms h ave been present for 3 days and indicates a pain score of 0/10. MEDICAL/SURGICAL HISTORY: Carcinoma, cervical. Hysterectomy. Appendectomy. Cholecystectomy. RADIATION DOSE: 9.3 CTDI (mGy) COMPARISON: No prior exams available for comparison. TECHNIQUE: Multiple contiguous axial images were obtained through the chest during bolus infusion of 60 ml Omnipaque 350 (iohexol) nonionic water-soluble contrast as a single exam dose. Images were obtained in suspended respiration using multiple row detector helical technique. Using automated exp osure control and adjustment of the mA and/or kV according to patient size, radiation dose was kept a s low as reasonably achievable to obtain optimal diagnostic quality images. DICOM format image data is available electronically for review and comparison. FINDINGS: Somewhat patchy but diffuse thickening of the interlobular septa and groundglass infiltrates involve both lungs. No pleural effusion. No pneumothorax. 16 x 20 mm paratracheal and 18 x 30 mm subcarinal mediastinal lymph nodes are present. There are prev ascular lymph nodes measuring up to 10 x 27 mm and an AP window lymph node measuring 14 x 23 mm. Ther e are several lymph nodes in each duyen measuring close to a centimeter in size. Heart size is within normal limits. Liver appears fatty infiltrated. CONCLUSION: 1. Combination of diffuse interstitial and groundglass alveolar infiltrates of both lungs, nonspecif ic. Atypical infectious etiologies and inflammatory pneumonitis would be in the differential. 2. Upper limits of normal to mildly enlarged mediastinal lymph nodes. Electronically signed by: Glenroy More MD 06/28/2018 10:40 PM EST
[2018-06-29] MEDS: MethylPREDNISolone Sod Succinate Inj 40 MG/ML Vial IV.PUSH SCH ×3 (00:16→17:08)
[2018-06-29] MEDS ORDERED: Pharmacy Ordered Lab Info OTHER ONE (03:45)
[2018-06-29] MEDS: Vancomycin Inj 1,000 MG in Sodium Chlor 0.9% Inj 250 ML IV.SIG SCH ×3 (03:52→20:27)
[2018-06-29] MEDS: ALPRAZolam 0.25 MG Tablet PO PRN ×3 (03:52→20:34)
[2018-06-29 03:54] LABS: Baso % (Auto) 0.4 % (0.0-2.0); Eos # (Auto) 0.1 th/mm3 (0.0-0.4); Eos % (Auto) 0.6 % (0.0-4.0); Hemoglobin 9.6 gm/dL (11.6-15.3); Lymph # (Auto) 1.1 th/mm3 (1.0-4.8); Lymph % (Auto) 12.9 % (9.0-44.0); Mean Corpuscular HGB Conc 32.9 % (32.0-36.0); Mean Corpuscular Hemoglobin 28.7 pg (27.0-34.0); Mean Platelet Volume 7.1 fL (7.0-11.0); Mono # (Auto) 0.2 th/mm3 (0.0-0.9); Mono % (Auto) 2.6 % (0.0-8.0); Neut # (Auto) 7.3 th/mm3 (1.8-7.7); Neut % (Auto) 83.5 % (16.0-70.0); Platelet Count 309 th/mm3 (150-450); Red Blood Count 3.33 mil/mm3 (4.00-5.30); Red Cell Distribution Width 13.7 % (11.6-17.2); White Blood Count 8.8 th/mm3 (4.0-11.0)
[2018-06-29] MEDS: Chlorhexidine Gluconate 2% 1 Pack (2 Cloths) TOPICAL SCH (03:54)
[2018-06-29 04:11] LABS: Anion Gap 8 meq/L (5-15); Blood Urea Nitrogen 13 mg/dL (7-18); Calcium 8.2 mg/dL (8.5-10.1); Carbon Dioxide 27.3 meq/L (21.0-32.0); Chloride 106 meq/L (98-107); Glomerular Filtration Rate Greater Than 89 mL/min (>89); Glucose,Random 126 mg/dL (74-106); Magnesium 2.2 mg/dL (1.5-2.5); Sodium 141 meq/L (136-145)
[2018-06-29 04:21] LABS: Phosphorus 4.6 mg/dL (2.5-4.9); Vancomycin,Trough 17.4 mcg/mL (5.0-10.0)
--- NOTE | 2018-06-29 05:03 | XR ---
EXAM DATE: 06/29/2018 4:07 AM EST AGE/SEX: 43 years / Female INDICATIONS: Shortness of breath, possible pulmonary disease. CLINICAL DATA: This is the patient's subsequent encounter. Patient reports that signs and symptoms h ave been present for 4 - 6 days and indicates a pain score of 0/10. MEDICAL/SURGICAL HISTORY: Carcinoma, cervical. Hysterectomy. Appendectomy. Cholecystectomy. COMPARISON: [facility] [place] 1V SINGLE AP, 06/27/2018. . FINDINGS: Patchy airspace disease in the lungs especially at the bases. Findings similar to June 27. No sig nificant effusion. No pneumothorax. Heart size mildly enlarged. CONCLUSION: Bilateral airspace disease in the lungs, most severe at the bases. No significant effusion. No pneumo thorax. No significant change from prior exam. Electronically signed by: Jerry Wallace MD 06/29/2018 5:02 AM EST
[2018-06-29] MEDS: Sertraline 50 MG Tablet PO SCH (08:21)
[2018-06-29] MEDS: Senna/Docusate Sodium 8.6/50 MG Tablet PO SCH ×2 (08:21→20:27)
[2018-06-29] MEDS: Famotidine PF Inj 20 MG/2 ML Vial IV.PUSH SCH ×2 (08:21→20:29)
[2018-06-29] MEDS: Aztreonam Inj 2 GM in Sodium Chloride 0.9% Inj 100 ML IV.SIG SCH ×2 (08:22→17:08)
[2018-06-29] MEDS: levoFLOXacin 500 MG Tablet PO SCH (08:28)
--- NOTE | 2018-06-29 10:08 | P.PNIM ---
Subjective Interval history: Mrs. Weller has shown improvement on antibiotic therapy. However, she still requires nonrebreather mask with saturations in the lower 90s. No complaints other than pain today. Patient denies prior history of lung disease. Physical Exam Vital signs: Vital Signs 06/28/18 11:00 06/28/18 11:43 06/28/18 12:00 Temperature Pulse Rate 87 94 H 98 H Respiratory Rate 135 H 20 38 H Blood Pressure 133/88 122/82 Pulse Oximetry 93 L 93 L 06/28/18 13:00 06/28/18 14:00 06/28/18 14:43 Temperature Pulse Rate 95 H 98 H 95 H Respiratory Rate 141 H 35 H 30 H Blood Pressure 131/82 116/70 Pulse Oximetry 90 L 96 94 L 06/28/18 15:00 06/28/18 15:41 06/28/18 16:00 Temperature Pulse Rate 98 H 94 H 105 H Respiratory Rate 68 H 22 48 H Blood Pressure 116/74 135/75 Pulse Oximetry 96 91 L 06/28/18 17:00 06/28/18 18:00 06/28/18 19:00 Temperature Pulse Rate 96 H 95 H 93 H Respiratory Rate 40 H 36 H 35 H Blood Pressure 121/84 121/69 117/74 Pulse Oximetry 90 L 95 95 06/28/18 20:00 06/28/18 20:41 06/28/18 21:00 Temperature 98.6 F Pulse Rate 92 H 94 H 88 Respiratory Rate 32 H 28 H 29 H Blood Pressure 123/79 119/71 Pulse Oximetry 97 98 98 06/28/18 22:00 06/28/18 22:27 06/28/18 22:28 Temperature Pulse Rate 88 91 H 87 Respiratory Rate 33 H 38 H 27 H Blood Pressure 123/83 119/82 119/82 Pulse Oximetry 95 99 99 06/28/18 23:00 06/29/18 00:00 06/29/18 00:12 Temperature 98.7 F Pulse Rate 83 85 82 Respiratory Rate 28 H 28 H 40 H Blood Pressure 127/75 132/69 Pulse Oximetry 97 96 06/29/18 01:00 06/29/18 02:00 06/29/18 03:00 Temperature Pulse Rate 83 81 80 Respiratory Rate 28 H 26 H 24 Blood Pressure 126/80 135/79 130/75 Pulse Oximetry 98 96 96 06/29/18 04:00 06/29/18 04:11 06/29/18 05:00 Temperature 98.8 F Pulse Rate 79 78 81 Respiratory Rate 24 16 27 H Blood Pressure 127/87 119/66 Pulse Oximetry 98 98 06/29/18 06:00 06/29/18 07:00 06/29/18 07:42 Temperature Pulse Rate 79 78 79 Respiratory Rate 27 H 20 24 Blood Pressure 121/71 128/83 Pulse Oximetry 94 L 95 96 06/29/18 08:00 Temperature 98.3 F Pulse Rate 82 Respiratory Rate 27 H Blood Pressure 128/77 Pulse Oximetry 96 Intake & Output 06/28/18 06/29/18 06/29/18 18:59 06:59 18:59 Intake Total 1450 / 1450 940 / 940 100 / 100 Output Total 1100 / 1100 Balance 1450 / 1450 -160 / -160 100 / 100 Weight 62.6 kg Intake: IV 450 / 450 700 / 700 100 / 100 Azactam Inj 2 GM In NS Inj 100 100 / 100 200 / 200 100 / 100 ML @ 200 mls/hr IV.SIG Q8H [place] Rx#:[id number] Levaquin 500 mg Premix Inj 500 100 / 100 mg In 100 ml @ 100 mls/hr IV. SIG Q24H [place] Rx#:[id number] Vancomycin Inj 1,000 MG In NS 250 / 250 500 / 500 Inj 250 ML @ 250 mls/hr IV.SIG Q8H [place] Rx#:[id number] Oral 1000 / 1000 240 / 240 Output: Urine 1100 / 1100 Other: # Voids 3 3 Date of Last Bowel Movement 06/25/18 06/29/18 # Bowel Movements 2 Narrative: GENERAL: NAD, A&Ox3 HEAD: Normocephalic. NECK: Supple, trachea midline. No lymphadenopathy. EYES: No scleral icterus. No injection or drainage. CARDIOVASCULAR: Regular rate and rhythm without murmurs, gallops, or rubs. RESPIRATORY: Breath sounds equal bilaterally. No accessory muscle use. Coarse breath sounds bilaterally with rhonchi. GASTROINTESTINAL: Abdomen soft, non-tender, nondistended. MUSCULOSKELETAL: No cyanosis, or edema. SKIN: Warm and dry. NEURO: No focal neurological deficits. Results - Labs CBC & Chem 7: 06/29/18 03:45 06/29/18 03:45 Laboratory Results - last 24 hr 06/29/18 06/29/18 03:45 03:45 WBC 8.8 RBC 3.33 L Hgb 9.6 L Hct 29.0 L MCV 87.0 MCH 28.7 MCHC 32.9 RDW 13.7 Plt Count 309 MPV 7.1 Neut % (Auto) 83.5 H Lymph % (Auto) 12.9 [place] % (Auto) 2.6 Eos % (Auto) 0.6 Baso % (Auto) 0.4 Neut # (Auto) 7.3 Lymph # (Auto) 1.1 [place] # (Auto) 0.2 Eos # (Auto) 0.1 Baso # (Auto) 0.0 WBC Differential . Differential Comment Auto diff final Sodium 141 Potassium 4.0 Chloride 106 Carbon Dioxide 27.3 Anion Gap 8 BUN 13 Creatinine 0.52 Estimated GFR Greater than 89 Random Glucose 126 H Calcium 8.2 L Phosphorus 4.6 D Magnesium 2.2 Vancomycin Trough 17.4 H Microbiology 06/25/18 20:20 Blood - Peripheral Aerobic Blood Culture - Preliminary No growth in 3 days 06/25/18 20:20 Blood - Peripheral Anaerobic Blood Culture - Preliminary No growth in 3 days 06/25/18 20:35 Blood - Peripheral Aerobic Blood Culture - Preliminary No growth in 3 days 06/25/18 20:35 Blood - Peripheral Anaerobic Blood Culture - Preliminary No growth in 3 days - Imaging Impressions Chest CT 06/28/18 00:00 CONCLUSION: 1. Combination of diffuse interstitial and groundglass alveolar infiltrates of both lungs, nonspecific. Atypical infectious etiologies and inflammatory pneumonitis would be in the differential. 2. Upper limits of normal to mildly enlarged mediastinal lymph nodes. Chest X-Ray 06/29/18 04:00 CONCLUSION: Bilateral airspace disease in the lungs, most severe at the bases. No significant effusion. No pneumothorax. No significant change from prior exam. Assessment and Plan - Plan 43-year-old female admitted secondary to pneumonia with exacerbation of likely underlying COPD Community-acquired pneumonia Outpatient treatment failure (azithromycin) Acute hypoxic respiratory failure Possible COPD exacerbation History of tobacco abuse Able to be weaned off BiPAP Continue nonrebreather Not yet stable for transfer out of ICU Continue Levaquin, aztreonam, vancomycin urine Legionella pneumococcal antigens-negative Pulmonology following Steroids continued Depression Anxiety disorder Continue sertraline Continue trazodone Continue hydroxyzine Continue Xanax DVT prophylaxis Lovenox SCDs
--- NOTE | 2018-06-29 18:13 | P.PN ---
Subjective Interval history: ALERT LESS SOB Physical Exam Vital signs: Vital Signs 06/28/18 19:00 06/28/18 20:00 06/28/18 20:41 Temperature 98.6 F Pulse Rate 93 H 92 H 94 H Respiratory Rate 35 H 32 H 28 H Blood Pressure 117/74 123/79 Pulse Oximetry 95 97 98 06/28/18 21:00 06/28/18 22:00 06/28/18 22:27 Temperature Pulse Rate 88 88 91 H Respiratory Rate 29 H 33 H 38 H Blood Pressure 119/71 123/83 119/82 Pulse Oximetry 98 95 99 06/28/18 22:28 06/28/18 23:00 06/29/18 00:00 Temperature 98.7 F Pulse Rate 87 83 85 Respiratory Rate 27 H 28 H 28 H Blood Pressure 119/82 127/75 132/69 Pulse Oximetry 99 97 96 06/29/18 00:12 06/29/18 01:00 06/29/18 02:00 Temperature Pulse Rate 82 83 81 Respiratory Rate 40 H 28 H 26 H Blood Pressure 126/80 135/79 Pulse Oximetry 98 96 06/29/18 03:00 06/29/18 04:00 06/29/18 04:11 Temperature 98.8 F Pulse Rate 80 79 78 Respiratory Rate 24 24 16 Blood Pressure 130/75 127/87 Pulse Oximetry 96 98 06/29/18 05:00 06/29/18 06:00 06/29/18 07:00 Temperature Pulse Rate 81 79 78 Respiratory Rate 27 H 27 H 20 Blood Pressure 119/66 121/71 128/83 Pulse Oximetry 98 94 L 95 06/29/18 07:42 06/29/18 08:00 06/29/18 09:00 Temperature 98.3 F Pulse Rate 79 82 83 Respiratory Rate 24 27 H 32 H Blood Pressure 128/77 132/77 Pulse Oximetry 96 96 92 L 06/29/18 10:00 06/29/18 11:00 06/29/18 11:39 Temperature Pulse Rate 80 85 84 Respiratory Rate 29 H 32 H 30 H Blood Pressure 136/81 138/88 Pulse Oximetry 95 94 L 06/29/18 11:40 06/29/18 12:00 06/29/18 13:00 Temperature 99 F Pulse Rate 84 89 Respiratory Rate 35 H 88 H Blood Pressure 130/83 134/82 Pulse Oximetry 95 94 L 89 L 06/29/18 14:00 06/29/18 15:00 06/29/18 15:06 Temperature Pulse Rate 93 H 84 84 Respiratory Rate 23 29 H 18 Blood Pressure 113/68 108/66 Pulse Oximetry 96 89 L 06/29/18 16:00 Temperature 98.8 F Pulse Rate 86 Respiratory Rate 40 H Blood Pressure 106/75 Pulse Oximetry 94 L Intake & Output 06/28/18 06/29/18 06/29/18 18:59 06:59 18:59 Intake Total 1450 / 1450 940 / 940 850 / 850 Output Total 1100 / 1100 Balance 1450 / 1450 -160 / -160 850 / 850 Weight 62.6 kg Intake: IV 450 / 450 700 / 700 350 / 350 Azactam Inj 2 GM In NS Inj 100 100 / 100 200 / 200 100 / 100 ML @ 200 mls/hr IV.SIG Q8H [place] Rx#:[id number] Levaquin 500 mg Premix Inj 500 100 / 100 mg In 100 ml @ 100 mls/hr IV. SIG Q24H [place] Rx#:[id number] Vancomycin Inj 1,000 MG In NS 250 / 250 500 / 500 250 / 250 Inj 250 ML @ 250 mls/hr IV.SIG Q8H [place] Rx#:[id number] Oral 1000 / 1000 240 / 240 500 / 500 Output: Urine 1100 / 1100 Other: # Voids 3 3 2 Date of Last Bowel Movement 06/25/18 06/29/18 06/29/18 # Bowel Movements 2 1 Narrative: GENERAL: NAD, A&Ox3 HEAD: Normocephalic. NECK: Supple, trachea midline. No lymphadenopathy. EYES: No scleral icterus. No injection or drainage. CARDIOVASCULAR: Regular rate and rhythm without murmurs, gallops, or rubs. RESPIRATORY: Breath sounds equal bilaterally. No accessory muscle use. Coarse breath sounds bilaterally with rhonchi. GASTROINTESTINAL: Abdomen soft, non-tender, nondistended. MUSCULOSKELETAL: No cyanosis, or edema. SKIN: Warm and dry. NEURO: No focal neurological deficits. Results - Labs CBC & Chem 7: 06/29/18 03:45 06/29/18 03:45 Laboratory Results - last 24 hr 06/29/18 06/29/18 03:45 03:45 WBC 8.8 RBC 3.33 L Hgb 9.6 L Hct 29.0 L MCV 87.0 MCH 28.7 MCHC 32.9 RDW 13.7 Plt Count 309 MPV 7.1 Neut % (Auto) 83.5 H Lymph % (Auto) 12.9 [place] % (Auto) 2.6 Eos % (Auto) 0.6 Baso % (Auto) 0.4 Neut # (Auto) 7.3 Lymph # (Auto) 1.1 [place] # (Auto) 0.2 Eos # (Auto) 0.1 Baso # (Auto) 0.0 WBC Differential . Differential Comment Auto diff final Sodium 141 Potassium 4.0 Chloride 106 Carbon Dioxide 27.3 Anion Gap 8 BUN 13 Creatinine 0.52 Estimated GFR Greater than 89 Random Glucose 126 H Calcium 8.2 L Phosphorus 4.6 D Magnesium 2.2 Vancomycin Trough 17.4 H Microbiology 06/25/18 20:20 Blood - Peripheral Aerobic Blood Culture - Preliminary No growth in 4 days 06/25/18 20:20 Blood - Peripheral Anaerobic Blood Culture - Preliminary No growth in 4 days 06/25/18 20:35 Blood - Peripheral Aerobic Blood Culture - Preliminary No growth in 4 days 06/25/18 20:35 Blood - Peripheral Anaerobic Blood Culture - Preliminary No growth in 4 days - Imaging Impressions Chest CT 06/28/18 00:00 CONCLUSION: 1. Combination of diffuse interstitial and groundglass alveolar infiltrates of both lungs, nonspecific. Atypical infectious etiologies and inflammatory pneumonitis would be in the differential. 2. Upper limits of normal to mildly enlarged mediastinal lymph nodes. Chest X-Ray 06/29/18 04:00 CONCLUSION: Bilateral airspace disease in the lungs, most severe at the bases. No significant effusion. No pneumothorax. No significant change from prior exam. Assessment and Plan - Plan RESPIRATORY FAILURE BILATERAL PNA FLORIN O2 NEEDED ANTIBX INCREASE ACTIVITY
[2018-06-29] MEDS: traZODone 100 MG Tablet PO SCH (20:28)
[2018-06-30] MEDS: Aztreonam Inj 2 GM in Sodium Chloride 0.9% Inj 100 ML IV.SIG SCH ×3 (00:50→16:20)
[2018-06-30] MEDS: Enoxaparin Inj 40 MG/0.4 ML Syringe SQ SCH (00:51)
[2018-06-30] MEDS: MethylPREDNISolone Sod Succinate Inj 40 MG/ML Vial IV.PUSH SCH ×3 (00:52→16:19)
[2018-06-30] MEDS: Vancomycin Inj 1,000 MG in Sodium Chlor 0.9% Inj 250 ML IV.SIG SCH ×3 (04:50→20:26)
[2018-06-30] MEDS: Chlorhexidine Gluconate 2% 1 Pack (2 Cloths) TOPICAL SCH (04:53)
[2018-06-30] MEDS: ALPRAZolam 0.25 MG Tablet PO PRN ×3 (09:57→22:23)
[2018-06-30] MEDS: Senna/Docusate Sodium 8.6/50 MG Tablet PO SCH ×2 (09:58→20:27)
[2018-06-30] MEDS: levoFLOXacin 500 MG Tablet PO SCH (09:58)
[2018-06-30] MEDS: Famotidine PF Inj 20 MG/2 ML Vial IV.PUSH SCH ×2 (09:58→20:26)
[2018-06-30] MEDS: Sertraline 50 MG Tablet PO SCH (09:58)
[2018-06-30] MEDS ORDERED: Morphine Inj 4 MG/ML Vial IV.PUSH ONE (11:42)
--- NOTE | 2018-06-30 11:44 | P.PNIM ---
Subjective Interval history: Improvement in respiratory status overnight. Patient still requires oxygen, not able to wean to room air yet. Her primary complaint is upper abdominal pain in the diaphragm area. Pain is likely related to her pneumonia. No other complaints. Physical Exam Vital signs: Vital Signs 06/29/18 12:00 06/29/18 13:00 06/29/18 14:00 Temperature 99 F Pulse Rate 84 89 93 H Respiratory Rate 35 H 88 H 23 Blood Pressure 130/83 134/82 113/68 Pulse Oximetry 94 L 89 L 96 06/29/18 15:00 06/29/18 15:06 06/29/18 16:00 Temperature 98.8 F Pulse Rate 84 84 86 Respiratory Rate 29 H 18 40 H Blood Pressure 108/66 106/75 Pulse Oximetry 89 L 94 L 06/29/18 17:00 06/29/18 18:00 06/29/18 19:00 Temperature Pulse Rate 76 82 90 Respiratory Rate 23 123 H 30 H Blood Pressure 133/75 141/89 H 120/70 Pulse Oximetry 98 95 97 06/29/18 20:00 06/29/18 20:55 06/29/18 21:01 Temperature 98.6 F Pulse Rate 89 77 107 H Respiratory Rate 42 H 24 38 H Blood Pressure 119/78 119/84 Pulse Oximetry 95 100 94 L 06/29/18 22:00 06/29/18 23:00 06/30/18 00:00 Temperature 98.7 F Pulse Rate 80 71 65 Respiratory Rate 25 H 24 111 H Blood Pressure 104/67 122/74 129/87 Pulse Oximetry 98 100 98 06/30/18 01:00 06/30/18 01:29 06/30/18 02:00 Temperature Pulse Rate 63 67 Respiratory Rate 20 18 17 Blood Pressure 121/76 150/80 H Pulse Oximetry 95 100 06/30/18 03:00 06/30/18 04:00 06/30/18 05:00 Temperature 98.6 F Pulse Rate 67 62 68 Respiratory Rate 33 H 20 41 H Blood Pressure 130/77 125/77 141/86 H Pulse Oximetry 88 L 95 98 06/30/18 05:18 06/30/18 05:49 06/30/18 06:00 Temperature Pulse Rate 64 60 Respiratory Rate 20 21 Blood Pressure 144/78 H Pulse Oximetry 92 L 06/30/18 07:00 06/30/18 08:00 06/30/18 10:00 Temperature 98.5 F Pulse Rate 64 59 L 87 Respiratory Rate 31 H 25 H Blood Pressure 143/91 H 133/90 Pulse Oximetry 92 L 92 L 06/30/18 10:47 Temperature Pulse Rate Respiratory Rate 19 Blood Pressure Pulse Oximetry Intake & Output 06/29/18 06/30/18 06/30/18 18:59 06:59 18:59 Intake Total 950 / 950 830 / 830 350 / 350 Balance 950 / 950 830 / 830 350 / 350 Weight 61.1 kg Intake: IV 450 / 450 350 / 350 350 / 350 Azactam Inj 2 GM In NS Inj 100 200 / 200 100 / 100 100 / 100 ML @ 200 mls/hr IV.SIG Q8H [place] Rx#:[id number] Vancomycin Inj 1,000 MG In NS 250 / 250 250 / 250 250 / 250 Inj 250 ML @ 250 mls/hr IV.SIG Q8H [place] Rx#:[id number] Oral 500 / 500 480 / 480 Other: # Voids 2 4 Date of Last Bowel Movement 06/29/18 06/29/18 06/30/18 # Bowel Movements 1 1 Narrative: GENERAL: NAD, A&Ox3 HEAD: Normocephalic. NECK: Supple, trachea midline. No lymphadenopathy. EYES: No scleral icterus. No injection or drainage. CARDIOVASCULAR: Regular rate and rhythm without murmurs, gallops, or rubs. RESPIRATORY: Breath sounds equal bilaterally. No accessory muscle use. Bilateral rhonchi, improving. GASTROINTESTINAL: Abdomen soft, non-tender, nondistended. MUSCULOSKELETAL: No cyanosis, or edema. SKIN: Warm and dry. NEURO: No focal neurological deficits. Results - Labs CBC & Chem 7: 06/29/18 03:45 06/29/18 03:45 Microbiology 06/25/18 20:20 Blood - Peripheral Aerobic Blood Culture - Final No growth in 5 days 06/25/18 20:20 Blood - Peripheral Anaerobic Blood Culture - Final No growth in 5 days 06/25/18 20:35 Blood - Peripheral Aerobic Blood Culture - Final No growth in 5 days 06/25/18 20:35 Blood - Peripheral Anaerobic Blood Culture - Final No growth in 5 days Assessment and Plan - Plan 43-year-old female admitted secondary to pneumonia with exacerbation of likely underlying COPD Clinically improving on treatments. Change Lortab to Percocet for better pain control. Continue oxygen support and wean as tolerated. Community-acquired pneumonia Outpatient treatment failure (azithromycin) Acute hypoxic respiratory failure Possible COPD exacerbation History of tobacco abuse Able to be weaned off BiPAP Continue nonrebreather Not yet stable for transfer out of ICU Continue Levaquin, aztreonam, vancomycin urine Legionella pneumococcal antigens-negative Pulmonology following Steroids continued Depression Anxiety disorder Continue sertraline Continue trazodone Continue hydroxyzine Continue Xanax DVT prophylaxis Lovenox SCDs
--- NOTE | 2018-06-30 16:08 | P.PN ---
Subjective Interval history: alert less sob Physical Exam Vital signs: Vital Signs 06/29/18 17:00 06/29/18 18:00 06/29/18 19:00 Temperature Pulse Rate 76 82 90 Respiratory Rate 23 123 H 30 H Blood Pressure 133/75 141/89 H 120/70 Pulse Oximetry 98 95 97 06/29/18 20:00 06/29/18 20:55 06/29/18 21:01 Temperature 98.6 F Pulse Rate 89 77 107 H Respiratory Rate 42 H 24 38 H Blood Pressure 119/78 119/84 Pulse Oximetry 95 100 94 L 06/29/18 22:00 06/29/18 23:00 06/30/18 00:00 Temperature 98.7 F Pulse Rate 80 71 65 Respiratory Rate 25 H 24 111 H Blood Pressure 104/67 122/74 129/87 Pulse Oximetry 98 100 98 06/30/18 01:00 06/30/18 01:29 06/30/18 02:00 Temperature Pulse Rate 63 67 Respiratory Rate 20 18 17 Blood Pressure 121/76 150/80 H Pulse Oximetry 95 100 06/30/18 03:00 06/30/18 04:00 06/30/18 05:00 Temperature 98.6 F Pulse Rate 67 62 68 Respiratory Rate 33 H 20 41 H Blood Pressure 130/77 125/77 141/86 H Pulse Oximetry 88 L 95 98 06/30/18 05:18 06/30/18 05:49 06/30/18 06:00 Temperature Pulse Rate 64 60 Respiratory Rate 20 21 Blood Pressure 144/78 H Pulse Oximetry 92 L 06/30/18 07:00 06/30/18 08:00 06/30/18 09:00 Temperature 98.5 F Pulse Rate 64 59 L 65 Respiratory Rate 31 H 25 H 33 H Blood Pressure 143/91 H 133/90 140/81 Pulse Oximetry 92 L 92 L 98 06/30/18 10:00 06/30/18 10:47 06/30/18 11:00 Temperature Pulse Rate 87 83 Respiratory Rate 63 H 19 34 H Blood Pressure 126/89 115/69 Pulse Oximetry 90 L 96 06/30/18 12:00 06/30/18 13:00 06/30/18 14:00 Temperature 98 F Pulse Rate 75 83 86 Respiratory Rate 26 H 26 H 34 H Blood Pressure 117/73 158/89 H 123/65 Pulse Oximetry 95 93 L 94 L 11/25/18 15:00 Temperature Pulse Rate 70 Respiratory Rate 25 H Blood Pressure 125/79 Pulse Oximetry 95 Intake & Output 06/29/18 06/30/18 06/30/18 18:59 06:59 18:59 Intake Total 950 / 950 830 / 830 600 / 600 Balance 950 / 950 830 / 830 600 / 600 Weight 61.1 kg Intake: IV 450 / 450 350 / 350 600 / 600 Azactam Inj 2 GM In NS Inj 100 200 / 200 100 / 100 100 / 100 ML @ 200 mls/hr IV.SIG Q8H [place] Rx#:[id number] Vancomycin Inj 1,000 MG In NS 250 / 250 250 / 250 500 / 500 Inj 250 ML @ 250 mls/hr IV.SIG Q8H [place] Rx#:[id number] Oral 500 / 500 480 / 480 Other: # Voids 2 4 Date of Last Bowel Movement 06/29/18 06/29/18 06/30/18 # Bowel Movements 1 1 Narrative: GENERAL: NAD, A&Ox3 HEAD: Normocephalic. NECK: Supple, trachea midline. No lymphadenopathy. EYES: No scleral icterus. No injection or drainage. CARDIOVASCULAR: Regular rate and rhythm without murmurs, gallops, or rubs. RESPIRATORY: Breath sounds equal bilaterally. No accessory muscle use. Bilateral rhonchi, improving. GASTROINTESTINAL: Abdomen soft, non-tender, nondistended. MUSCULOSKELETAL: No cyanosis, or edema. SKIN: Warm and dry. NEURO: No focal neurological deficits. Results - Labs CBC & Chem 7: 06/29/18 03:45 06/29/18 03:45 Microbiology 06/25/18 20:20 Blood - Peripheral Aerobic Blood Culture - Final No growth in 5 days 06/25/18 20:20 Blood - Peripheral Anaerobic Blood Culture - Final No growth in 5 days 06/25/18 20:35 Blood - Peripheral Aerobic Blood Culture - Final No growth in 5 days 06/25/18 20:35 Blood - Peripheral Anaerobic Blood Culture - Final No growth in 5 days Assessment and Plan - Plan RESPIRATORY FAILURE BILATERAL PNA FLORIN O2 NEEDED ANTIBX INCREASE ACTIVITY
[2018-06-30] MEDS: traZODone 100 MG Tablet PO SCH (20:26)
[2018-07-01] MEDS: MethylPREDNISolone Sod Succinate Inj 40 MG/ML Vial IV.PUSH SCH ×4 (00:46→21:17)
[2018-07-01] MEDS: Enoxaparin Inj 40 MG/0.4 ML Syringe SQ SCH (00:47)
[2018-07-01] MEDS: Aztreonam Inj 2 GM in Sodium Chloride 0.9% Inj 100 ML IV.SIG SCH ×3 (00:47→16:07)
[2018-07-01] MEDS: Vancomycin Inj 1,000 MG in Sodium Chlor 0.9% Inj 250 ML IV.SIG SCH ×3 (04:39→21:15)
[2018-07-01] MEDS: ALPRAZolam 0.25 MG Tablet PO PRN ×4 (04:45→22:37)
[2018-07-01] MEDS: Famotidine PF Inj 20 MG/2 ML Vial IV.PUSH SCH ×2 (08:31→21:15)
[2018-07-01] MEDS: Sertraline 50 MG Tablet PO SCH (08:32)
[2018-07-01] MEDS: levoFLOXacin 500 MG Tablet PO SCH (08:32)
[2018-07-01] MEDS: Senna/Docusate Sodium 8.6/50 MG Tablet PO SCH ×2 (08:33→21:17)
--- NOTE | 2018-07-01 09:00 | P.PN ---
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 She is visiting from [place] and states that about 2 weeks ago she developed cough, sputum production, fever, and chills. She was seen at an urgent care in [place] and she states she had a chest x-ray that showed "pneumonia in both lungs". She was prescribed azithromycin for 5 days, prednisone for 10 days and Tessalon Perles. She initially saw some improvement, but over the last 3-4 days she has had cough productive of yellow/green sputum, recurrence of fever and chills. She has also had some pain in mid chest with cough. No hemoptysis, leg pain or swelling, no prior cardiac history or history of venous thromboembolic disease. No diaphoresis, nausea, vomiting, sore throat, myalgias. She presented [facility] via [facility]. She had received albuterol en route. Chest x-ray demonstrated bibasilar opacities. She was given Levaquin 750 mg IV in the emergency department. EKG shows no ischemic changes and troponin is 0.10. She was hypoxic with room air sats in the 50s with high work of breathing. She was placed on BiPAP. Denies history of HIV or other immunosuppressed state. 06/27: Afebrile patient remains on 100% nonrebreather. Aggressive pulmonary toileting underway. ABG this a.m. is pending. O2 saturation now 99%. Patient continues on broad-spectrum antibiotics but noted chest x-ray worsening opacities this a.m.. Leukocytosis much improved. Patient denies any angina. Tolerating a clear liquid diet. 06/28: Patient more alert this morning interacting. Requesting increase in anti -anxiety medications. FiO2 requirement significantly decreased. Now on nasal chest x-ray pending in a.m.. Aggressive pulmonary toileting continued. Incentive spirometry encouraged. Hospitalist Notes: 07/01: Seen in her bedroom in intensive Care Unit even the patient wants to go home now, but she was evaluated in the presence of nurse Miss Carson and without oxygen her Oxygen saturation came back to 84%, and she continue saying "I continue Alive", asked for Walk test, but not yet recommended for discharge by career transition specialist. no nausea, vomit or diarrhea. Physical Exam Vital signs: Vital Signs 06/30/18 09:00 06/30/18 10:00 06/30/18 10:47 Temperature Pulse Rate 65 87 Respiratory Rate 33 H 63 H 19 Blood Pressure 140/81 126/89 Pulse Oximetry 98 90 L 06/30/18 11:00 06/30/18 12:00 06/30/18 13:00 Temperature 98 F Pulse Rate 83 75 83 Respiratory Rate 34 H 26 H 26 H Blood Pressure 115/69 117/73 158/89 H Pulse Oximetry 96 95 93 L 06/30/18 14:00 06/30/18 15:00 06/30/18 16:00 Temperature 98 F Pulse Rate 86 70 88 Respiratory Rate 34 H 25 H 71 H Blood Pressure 123/65 125/79 Pulse Oximetry 94 L 95 93 L 06/30/18 16:19 06/30/18 16:29 06/30/18 17:00 Temperature Pulse Rate 81 74 Respiratory Rate 113 H 153 H Blood Pressure 125/72 133/80 Pulse Oximetry 92 L 93 L 91 L 06/30/18 18:00 06/30/18 19:00 06/30/18 20:00 Temperature 98.2 F Pulse Rate 66 84 76 Respiratory Rate 87 H 165 H 32 H Blood Pressure 139/84 120/77 117/78 Pulse Oximetry 92 L 93 L 93 L 06/30/18 21:00 06/30/18 21:41 06/30/18 22:00 Temperature Pulse Rate 78 78 Respiratory Rate 23 24 Blood Pressure 117/72 105/68 Pulse Oximetry 87 L 95 91 L 06/30/18 23:00 07/01/18 00:00 07/01/18 01:00 Temperature 98 F Pulse Rate 67 69 98 H Respiratory Rate 18 21 39 H Blood Pressure 103/69 97/68 L Pulse Oximetry 92 L 91 L 84 L 07/01/18 01:01 07/01/18 02:00 07/01/18 02:02 Temperature Pulse Rate 84 72 70 Respiratory Rate 33 H 31 H 27 H Blood Pressure 110/59 L 119/64 Pulse Oximetry 87 L 82 L 93 L 07/01/18 03:00 07/01/18 04:00 07/01/18 05:00 Temperature 98.5 F Pulse Rate 63 63 63 Respiratory Rate 17 18 22 Blood Pressure 122/72 96/55 L 90/56 L Pulse Oximetry 95 94 L 92 L 07/01/18 05:25 07/01/18 06:00 07/01/18 07:00 Temperature Pulse Rate 62 59 L Respiratory Rate 18 20 23 Blood Pressure 95/58 L 98/62 L Pulse Oximetry 95 90 L Intake & Output 06/30/18 07/01/18 07/01/18 18:59 06:59 18:59 Intake Total 1450 / 1450 1560 / 1560 Output Total 1000 / 1000 Balance 1450 / 1450 560 / 560 Weight 61.1 kg Intake: IV 700 / 700 600 / 600 Azactam Inj 2 GM In NS Inj 100 200 / 200 100 / 100 ML @ 200 mls/hr IV.SIG Q8H [place] Rx#:[id number] Vancomycin Inj 1,000 MG In NS 500 / 500 500 / 500 Inj 250 ML @ 250 mls/hr IV.SIG Q8H [place] Rx#:[id number] Oral 750 / 750 960 / 960 Output: Urine 1000 / 1000 Other: # Voids 3 4 Date of Last Bowel Movement 06/30/18 06/29/18 Narrative: GENERAL: NAD, A&Ox3 HEAD: Normocephalic. NECK: Supple, trachea midline. No lymphadenopathy. EYES: No scleral icterus. No injection or drainage. CARDIOVASCULAR: Regular rate and rhythm without murmurs, gallops, or rubs. RESPIRATORY: Decreased breath sounds bilateral, no wheezing or crackles. GASTROINTESTINAL: Abdomen soft, non-tender, nondistended. MUSCULOSKELETAL: No cyanosis, or edema. SKIN: Warm and dry. NEURO: No focal neurological deficits. Results - Labs CBC & Chem 7: 06/29/18 03:45 06/29/18 03:45 Microbiology 06/25/18 20:20 Blood - Peripheral Aerobic Blood Culture - Final No growth in 5 days 06/25/18 20:20 Blood - Peripheral Anaerobic Blood Culture - Final No growth in 5 days 06/25/18 20:35 Blood - Peripheral Aerobic Blood Culture - Final No growth in 5 days 06/25/18 20:35 Blood - Peripheral Anaerobic Blood Culture - Final No growth in 5 days - Imaging Chest CT 06/28/18 00:00 CONCLUSION: 1. Combination of diffuse interstitial and groundglass alveolar infiltrates of both lungs, nonspecific. Atypical infectious etiologies and inflammatory pneumonitis would be in the differential. 2. Upper limits of normal to mildly enlarged mediastinal lymph nodes. Chest X-Ray 06/29/18 04:00 CONCLUSION: Bilateral airspace disease in the lungs, most severe at the bases. No significant effusion. No pneumothorax. No significant change from prior exam. - Procedures None. Assessment and Plan - Plan 43-year-old female admitted secondary to pneumonia with exacerbation of likely underlying COPD Clinically improving on treatments. Change Lortab to Percocet for better pain control. Continue oxygen support and wean as tolerated. Community-acquired pneumonia Outpatient treatment failure (azithromycin) Acute hypoxic respiratory failure Possible COPD exacerbation History of tobacco abuse Able to be weaned off BiPAP at this time on NC but when she takes the oxygen from her her oxygen saturation came to 84%. Okay to transfer to Med surg. Continue Levaquin, aztreonam, vancomycin urine Legionella pneumococcal antigens-negative Pulmonology following Steroids continued Walk test Depression Anxiety disorder Continue sertraline Continue trazodone Continue hydroxyzine Continue Xanax Tobacco dependence Strongly recommended to stop smoking Marijuana Abuse Strongly recommended to stop Behavior. DVT prophylaxis Lovenox SCDs Code Status: Full code. Discussed Condition With: patient and Nurse Miss Carson Discharge Planning: Once cleared by Pulmonary specialists.
--- NOTE | 2018-07-01 19:05 | P.PN ---
Subjective Interval history: She is better but still de sats when off O2. No fever. Able to cough up clear sputum. Physical Exam Vital signs: Vital Signs 06/30/18 20:00 06/30/18 21:00 06/30/18 21:41 Temperature 98.2 F Pulse Rate 76 78 Respiratory Rate 32 H 23 Blood Pressure 117/78 117/72 Pulse Oximetry 93 L 87 L 95 06/30/18 22:00 06/30/18 23:00 07/01/18 00:00 Temperature 98 F Pulse Rate 78 67 69 Respiratory Rate 24 18 21 Blood Pressure 105/68 103/69 97/68 L Pulse Oximetry 91 L 92 L 91 L 07/01/18 01:00 07/01/18 01:01 07/01/18 02:00 Temperature Pulse Rate 98 H 84 72 Respiratory Rate 39 H 33 H 31 H Blood Pressure 110/59 L Pulse Oximetry 84 L 87 L 82 L 07/01/18 02:02 07/01/18 03:00 07/01/18 04:00 Temperature 98.5 F Pulse Rate 70 63 63 Respiratory Rate 27 H 17 18 Blood Pressure 119/64 122/72 96/55 L Pulse Oximetry 93 L 95 94 L 07/01/18 05:00 07/01/18 05:25 07/01/18 06:00 Temperature Pulse Rate 63 62 Respiratory Rate 22 18 20 Blood Pressure 90/56 L 95/58 L Pulse Oximetry 92 L 95 07/01/18 07:00 07/01/18 08:00 07/01/18 09:00 Temperature 97.6 F Pulse Rate 59 L 57 L 76 Respiratory Rate 23 20 44 H Blood Pressure 98/62 L 100/66 98/68 L Pulse Oximetry 91 L 91 L 90 L 07/01/18 09:40 07/01/18 10:00 07/01/18 11:00 Temperature Pulse Rate 86 83 Respiratory Rate 19 34 H 35 H Blood Pressure 99/56 L 103/67 Pulse Oximetry 95 92 L 07/01/18 12:00 07/01/18 13:00 07/01/18 13:16 Temperature 97.9 F Pulse Rate 76 74 73 Respiratory Rate 26 H 40 H 30 H Blood Pressure 131/63 Pulse Oximetry 93 L 91 L 07/01/18 14:00 07/01/18 15:00 07/01/18 15:01 Temperature Pulse Rate 69 70 72 Respiratory Rate 33 H 23 33 H Blood Pressure 122/71 135/67 Pulse Oximetry 92 L 88 L 91 L 07/01/18 16:00 07/01/18 17:00 07/01/18 18:00 Temperature Pulse Rate 74 71 80 Respiratory Rate 41 H 29 H 36 H Blood Pressure 133/82 Pulse Oximetry 92 L 91 L 91 L Intake & Output 07/01/18 07/01/18 07/02/18 06:59 18:59 06:59 Intake Total 1560 / 1560 1600 / 1600 Output Total 1000 / 1000 Balance 560 / 560 1600 / 1600 Weight 61.1 kg Intake: IV 600 / 600 100 / 100 Azactam Inj 2 GM In NS Inj 100 100 / 100 100 / 100 ML @ 200 mls/hr IV.SIG Q8H [place] Rx#:[id number] Vancomycin Inj 1,000 MG In NS 500 / 500 Inj 250 ML @ 250 mls/hr IV.SIG Q8H [place] Rx#:[id number] Oral 960 / 960 1500 / 1500 Output: Urine 1000 / 1000 Other: # Voids 4 3 Date of Last Bowel Movement 06/29/18 06/30/18 Narrative: GENERAL: Mid aged w/F alert NAD. HEAD: Normocephalic. NECK: Supple, trachea midline. No lymphadenopathy. EYES: No scleral icterus. No injection or drainage. CARDIOVASCULAR: Regular rate and rhythm without murmurs, gallops, or rubs. RESPIRATORY: Decreased breath sounds bilateral, Occ Crackles at bases GASTROINTESTINAL: Abdomen soft, non-tender, nondistended. MUSCULOSKELETAL: No cyanosis, or edema. SKIN: Warm and dry. NEURO: No focal neurological deficits. Results - Labs CBC & Chem 7: 06/29/18 03:45 06/29/18 03:45 - Procedures None. Assessment and Plan - Assessment (1) COPD (chronic obstructive pulmonary disease) Code(s): J44.9 - Chronic obstructive pulmonary disease, unspecified Status: Acute (2) Nicotine dependence Code(s): F17.200 - Nicotine dependence, unspecified, uncomplicated Status: Acute (3) Pneumonia Code(s): J18.9 - Pneumonia, unspecified organism Status: Acute (4) Acute exacerbation of chronic obstructive airways disease Code(s): J44.1 - Chronic obstructive pulmonary disease with (acute) exacerbation Status: Acute (5) Elevated troponin Code(s): R74.8 - Abnormal levels of other serum enzymes Status: Acute - Plan 1. Wean O2 to keep sat >92. 2. Chest Xray today 3. Taper solumedrol to 40 MG BID 4. Duoneb nebs qid. 5. PFT with Bronchodilator. 6. CBC,BMP in am 7. Up with Help. 8. Symbicort 160/4.5 mcg 2 Puffs BID (3) Pneumonia Qualifiers: Pneumonia type: due to unspecified organism Laterality: bilateral Lung location: lower lobe of lung Qualified Code(s): J18.1 - Lobar pneumonia, unspecified organism
--- NOTE | 2018-07-01 20:03 | XR ---
EXAM DATE: 07/01/2018 7:55 PM EST AGE/SEX: 43 years / Female INDICATIONS: . Pneumonia. CLINICAL DATA: This is the patient's initial encounter. Patient reports that signs and symptoms have been present for 3 weeks and indicates a pain score of 0/10. MEDICAL/SURGICAL HISTORY: Chronic obstructive pulmonary disease. None. COMPARISON: No prior exams available for comparison. FINDINGS: AP and lateral views of the chest demonstrate scattered bilateral interstitial and alveolar parenchym al densities. Heart normal in size. No pleural effusions. The cardiomediastinal contours are unremark able. Osseous structures are intact. CONCLUSION: Bilateral patchy interstitial and alveolar infiltrates. Treatment and follow-up recommended. Electronically signed by: Joe Hathaway MD 07/01/2018 8:02 PM EST
[2018-07-01] MEDS: traZODone 100 MG Tablet PO SCH (21:18)
[2018-07-02] MEDS: Aztreonam Inj 2 GM in Sodium Chloride 0.9% Inj 100 ML IV.SIG SCH ×3 (00:27→17:28)
[2018-07-02] MEDS: Enoxaparin Inj 40 MG/0.4 ML Syringe SQ SCH (00:27)
[2018-07-02] MEDS: Vancomycin Inj 1,000 MG in Sodium Chlor 0.9% Inj 250 ML IV.SIG SCH ×3 (04:49→22:05)
[2018-07-02] MEDS: ALPRAZolam 0.25 MG Tablet PO PRN ×3 (05:17→18:15)
--- NOTE | 2018-07-02 09:24 | P.PNIM ---
Subjective Interval history: The patient was wondering when she could go home. She said she had to fly out of state to visit her mother. She wants to leave before the weekend. She says she has some epigastric pain when she breathes deeply. She says she tried to walk around last night but was told she could not. Discussed with nursing. Physical Exam Vital signs: Vital Signs 07/01/18 09:40 07/01/18 10:00 07/01/18 11:00 Temperature Pulse Rate 86 83 Respiratory Rate 19 34 H 35 H Blood Pressure 99/56 L 103/67 Pulse Oximetry 95 92 L 07/01/18 12:00 07/01/18 13:00 07/01/18 13:16 Temperature 97.9 F Pulse Rate 76 74 73 Respiratory Rate 26 H 40 H 30 H Blood Pressure 131/63 Pulse Oximetry 93 L 91 L 07/01/18 14:00 07/01/18 15:00 07/01/18 15:01 Temperature Pulse Rate 69 70 72 Respiratory Rate 33 H 23 33 H Blood Pressure 122/71 135/67 Pulse Oximetry 92 L 88 L 91 L 07/01/18 16:00 07/01/18 17:00 07/01/18 18:00 Temperature Pulse Rate 74 71 80 Respiratory Rate 41 H 29 H 36 H Blood Pressure 133/82 Pulse Oximetry 92 L 91 L 91 L 07/01/18 19:00 07/01/18 20:00 07/01/18 20:13 Temperature 98.9 F Pulse Rate 76 70 Respiratory Rate 30 H Blood Pressure Pulse Oximetry 91 L 88 L 07/01/18 20:16 07/01/18 20:22 07/01/18 20:30 Temperature Pulse Rate 105 H 81 Respiratory Rate 30 H 36 H Blood Pressure 126/85 114/78 Pulse Oximetry 93 L 93 L 90 L 07/01/18 21:00 07/01/18 21:30 07/01/18 22:00 Temperature Pulse Rate 80 91 H 74 Respiratory Rate 34 H 36 H 21 Blood Pressure 116/72 108/75 103/67 Pulse Oximetry 92 L 91 L 86 L 07/01/18 22:30 07/01/18 23:00 07/01/18 23:30 Temperature Pulse Rate 63 75 67 Respiratory Rate 20 19 20 Blood Pressure 107/60 111/58 L 99/57 L Pulse Oximetry 92 L 91 L 91 L 07/02/18 00:00 07/02/18 00:30 07/02/18 01:00 Temperature 98.9 F Pulse Rate 63 59 L 65 Respiratory Rate 18 20 23 Blood Pressure 99/58 L 105/70 93/55 L Pulse Oximetry 92 L 90 L 92 L 07/02/18 01:14 07/02/18 01:30 07/02/18 02:00 Temperature Pulse Rate 62 56 L Respiratory Rate 16 18 19 Blood Pressure 94/50 L 104/55 L Pulse Oximetry 92 L 90 L 07/02/18 02:31 07/02/18 03:00 07/02/18 03:30 Temperature Pulse Rate 56 L 59 L 56 L Respiratory Rate 19 19 18 Blood Pressure 117/69 110/59 L 114/60 Pulse Oximetry 90 L 92 L 89 L 07/02/18 04:00 07/02/18 05:00 07/02/18 05:13 Temperature 98.6 F Pulse Rate 63 55 L 66 Respiratory Rate 21 20 28 H Blood Pressure 101/57 L 87/62 L Pulse Oximetry 88 L 94 L 96 07/02/18 06:00 07/02/18 06:30 07/02/18 06:53 Temperature Pulse Rate 55 L 55 L Respiratory Rate 19 18 16 Blood Pressure 125/73 127/76 Pulse Oximetry 92 L 93 L 07/02/18 07:00 07/02/18 07:33 Temperature Pulse Rate 57 L Respiratory Rate 28 H Blood Pressure 126/85 Pulse Oximetry 92 L 93 L Intake & Output 07/01/18 07/02/18 07/02/18 18:59 06:59 18:59 Intake Total 1949 1080 / 1080 Output Total 1400 / 1400 Balance 1949 -320 / -320 Weight 61.1 kg Intake: IV 450 / 450 600 / 600 Azactam Inj 2 GM In NS Inj 100 200 / 200 100 / 100 ML @ 200 mls/hr IV.SIG Q8H [place] Rx#:[id number] Vancomycin Inj 1,000 MG In NS 250 / 250 500 / 500 Inj 250 ML @ 250 mls/hr IV.SIG Q8H [place] Rx#:[id number] Oral 1500 / 1500 480 / 480 Output: Urine 1400 / 1400 Other: # Voids 3 2 Date of Last Bowel Movement 06/30/18 06/29/18 Narrative: GENERAL: NAD. HEAD: Normocephalic. NECK: Supple, trachea midline. No lymphadenopathy. EYES: No scleral icterus. No injection or drainage. CARDIOVASCULAR: Regular rate and rhythm without murmurs, gallops, or rubs. RESPIRATORY: Decreased breath sounds bilaterally, wheezing noted. GASTROINTESTINAL: Abdomen soft, non-tender, nondistended. MUSCULOSKELETAL: No cyanosis, or edema. SKIN: Warm and dry. NEURO: No focal neurological deficits. Results - Labs CBC & Chem 7: 06/29/18 03:45 06/29/18 03:45 - Imaging Impressions Chest X-Ray 07/01/18 00:00 CONCLUSION: Bilateral patchy interstitial and alveolar infiltrates. Treatment and follow-up recommended. - Procedures None. Assessment and Plan - Plan 43-year-old female admitted secondary to pneumonia with exacerbation of likely underlying COPD Community-acquired pneumonia Outpatient treatment failure (azithromycin) Acute hypoxic respiratory failure Possible COPD exacerbation History of tobacco abuse Able to be weaned off BiPAP at this time on NC but when she takes the oxygen from her her oxygen saturation came to 84%. -Continue Levaquin, aztreonam, vancomycin urine Legionella pneumococcal antigens-negative Pulmonology following -Steroids being weaned -Walk test prior to discharge -standing and as needed nebs. -pain control as needed. Depression Anxiety disorder -Continue sertraline -Continue trazodone -Continue hydroxyzine -Continue Xanax Tobacco dependence -Strongly recommended to stop smoking. Marijuana abuse -cessation instruction. DVT prophylaxis Lovenox SCDs Discharge Planning: Transfer to floor
[2018-07-02] MEDS: Sertraline 50 MG Tablet PO SCH (09:46)
[2018-07-02] MEDS: levoFLOXacin 500 MG Tablet PO SCH (09:46)
[2018-07-02] MEDS: Senna/Docusate Sodium 8.6/50 MG Tablet PO SCH ×2 (09:46→22:05)
[2018-07-02] MEDS: MethylPREDNISolone Sod Succinate Inj 40 MG/ML Vial IV.PUSH SCH (09:46)
[2018-07-02] MEDS: Famotidine PF Inj 20 MG/2 ML Vial IV.PUSH SCH ×2 (09:46→22:06)
[2018-07-02] MEDS: Morphine Inj 4 MG/ML Vial IV.PUSH PRN ×3 (09:47→22:06)
[2018-07-02 10:37] LABS: Hematocrit 40.1 % (35.0-46.0); Hemoglobin 13.3 gm/dL (11.6-15.3); Mean Corpuscular HGB Conc 33.2 % (32.0-36.0); Mean Corpuscular Hemoglobin 29.4 pg (27.0-34.0); Mean Corpuscular Volume 88.7 fL (80.0-100.0); Mean Platelet Volume 6.9 fL (7.0-11.0); Platelet Count 536 th/mm3 (150-450); Red Blood Count 4.51 mil/mm3 (4.00-5.30); Red Cell Distribution Width 13.6 % (11.6-17.2); White Blood Count 11.6 th/mm3 (4.0-11.0)
[2018-07-02] MEDS: oxyCODONE/Acetaminophen 10/325 Tablet PO PRN ×3 (10:50→18:19)
[2018-07-02 11:11] LABS: Anion Gap 6 meq/L (5-15); Blood Urea Nitrogen 15 mg/dL (7-18); Calcium 8.5 mg/dL (8.5-10.1); Carbon Dioxide 23.7 meq/L (21.0-32.0); Chloride 108 meq/L (98-107); Glomerular Filtration Rate Greater Than 89 mL/min (>89); Glucose,Random 72 mg/dL (74-106); Potassium 3.4 meq/L (3.5-5.1); Sodium 138 meq/L (136-145)
--- NOTE | 2018-07-02 19:01 | P.PN ---
Subjective Interval history: Feels better . Keeps O2 off Less cough and wheezing. No fever CXR showed Bilateral Infiltrates Physical Exam Vital signs: Vital Signs 07/01/18 19:00 07/01/18 20:00 07/01/18 20:13 Temperature 98.9 F Pulse Rate 76 70 Respiratory Rate 30 H Blood Pressure Pulse Oximetry 91 L 88 L 07/01/18 20:16 07/01/18 20:22 07/01/18 20:30 Temperature Pulse Rate 105 H 81 Respiratory Rate 30 H 36 H Blood Pressure 126/85 114/78 Pulse Oximetry 93 L 93 L 90 L 07/01/18 21:00 07/01/18 21:30 07/01/18 22:00 Temperature Pulse Rate 80 91 H 74 Respiratory Rate 34 H 36 H 21 Blood Pressure 116/72 108/75 103/67 Pulse Oximetry 92 L 91 L 86 L 07/01/18 22:30 07/01/18 23:00 07/01/18 23:30 Temperature Pulse Rate 63 75 67 Respiratory Rate 20 19 20 Blood Pressure 107/60 111/58 L 99/57 L Pulse Oximetry 92 L 91 L 91 L 07/02/18 00:00 07/02/18 00:30 07/02/18 01:00 Temperature 98.9 F Pulse Rate 63 59 L 65 Respiratory Rate 18 20 23 Blood Pressure 99/58 L 105/70 93/55 L Pulse Oximetry 92 L 90 L 92 L 07/02/18 01:14 07/02/18 01:30 07/02/18 02:00 Temperature Pulse Rate 62 56 L Respiratory Rate 16 18 19 Blood Pressure 94/50 L 104/55 L Pulse Oximetry 92 L 90 L 07/02/18 02:31 07/02/18 03:00 07/02/18 03:30 Temperature Pulse Rate 56 L 59 L 56 L Respiratory Rate 19 19 18 Blood Pressure 117/69 110/59 L 114/60 Pulse Oximetry 90 L 92 L 89 L 07/02/18 04:00 07/02/18 05:00 07/02/18 05:13 Temperature 98.6 F Pulse Rate 63 55 L 66 Respiratory Rate 21 20 28 H Blood Pressure 101/57 L 87/62 L Pulse Oximetry 88 L 94 L 96 07/02/18 06:00 07/02/18 06:30 07/02/18 06:53 Temperature Pulse Rate 55 L 55 L Respiratory Rate 19 18 16 Blood Pressure 125/73 127/76 Pulse Oximetry 92 L 93 L 07/02/18 07:00 07/02/18 07:33 07/02/18 08:00 Temperature 98.3 F Pulse Rate 57 L 60 Respiratory Rate 28 H 21 Blood Pressure 126/85 116/67 Pulse Oximetry 92 L 93 L 90 L 07/02/18 08:30 07/02/18 09:00 07/02/18 09:30 Temperature Pulse Rate 61 90 66 Respiratory Rate 20 51 H 28 H Blood Pressure 121/68 124/73 Pulse Oximetry 93 L 91 L 95 07/02/18 09:49 07/02/18 09:55 07/02/18 10:00 Temperature Pulse Rate 82 82 Respiratory Rate 18 20 32 H Blood Pressure 111/75 Pulse Oximetry 96 07/02/18 12:00 07/02/18 14:15 07/02/18 16:00 Temperature 96.7 F L 97.8 F Pulse Rate 71 89 80 Respiratory Rate 18 18 20 Blood Pressure 133/60 112/56 L Pulse Oximetry 95 95 Intake & Output 07/01/18 07/02/18 07/02/18 18:59 06:59 18:59 Intake Total 1949 / 1949 1080 / 1080 450 / 450 Output Total 1400 / 1400 Balance 1949 -320 / -320 450 / 450 Weight 61.1 kg Intake: IV 450 / 450 600 / 600 450 / 450 Azactam Inj 2 GM In NS Inj 100 200 / 200 100 / 100 200 / 200 ML @ 200 mls/hr IV.SIG Q8H [place] Rx#:[id number] Vancomycin Inj 1,000 MG In NS 250 / 250 500 / 500 250 / 250 Inj 250 ML @ 250 mls/hr IV.SIG Q8H [place] Rx#:[id number] Oral 1500 / 1500 480 / 480 Output: Urine 1400 / 1400 Other: # Voids 3 2 3 Date of Last Bowel Movement 06/30/18 06/29/18 06/30/18 Narrative: GENERAL: Thin Mid aged W/F in NAD. HEAD: Normocephalic. NECK: Supple, trachea midline. No lymphadenopathy. EYES: No scleral icterus. No injection or drainage. CARDIOVASCULAR: Regular rate and rhythm without murmurs, gallops, or rubs. RESPIRATORY: Decreased breath sounds bilaterally, Bilateral wheezing noted. GASTROINTESTINAL: Abdomen soft, non-tender, nondistended. MUSCULOSKELETAL: No cyanosis, or edema. SKIN: Warm and dry. NEURO: No focal neurological deficits. Results - Labs CBC & Chem 7: 07/02/18 10:10 07/02/18 10:10 Laboratory Results - last 24 hr 07/02/18 07/02/18 10:10 10:10 WBC 11.6 H RBC 4.51 Hgb 13.3 Hct 40.1 MCV 88.7 MCH 29.4 MCHC 33.2 RDW 13.6 Plt Count 536 H D MPV 6.9 L Sodium 138 Potassium 3.4 L Chloride 108 H Carbon Dioxide 23.7 Anion Gap 6 BUN 15 Creatinine 0.55 Estimated GFR Greater than 89 Random Glucose 72 L Calcium 8.5 - Imaging Impressions Chest X-Ray 07/01/18 00:00 CONCLUSION: Bilateral patchy interstitial and alveolar infiltrates. Treatment and follow-up recommended. - Procedures None. Assessment and Plan - Assessment (1) COPD (chronic obstructive pulmonary disease) Code(s): J44.9 - Chronic obstructive pulmonary disease, unspecified Status: Acute (2) Nicotine dependence Code(s): F17.200 - Nicotine dependence, unspecified, uncomplicated Status: Acute (3) Pneumonia Code(s): J18.9 - Pneumonia, unspecified organism Status: Acute (4) Acute exacerbation of chronic obstructive airways disease Code(s): J44.1 - Chronic obstructive pulmonary disease with (acute) exacerbation Status: Acute (5) Elevated troponin Code(s): R74.8 - Abnormal levels of other serum enzymes Status: Acute - Plan 1. Wean O2 to keep sat >92. 2. Chest Xray in am 3. D/C solumedrol 4. Duoneb nebs qid. 5. Add prednisone 20 mg BID and taper 6. Get 6 Min Walk test for O2 7. Up with Help. 8. Symbicort 160/4.5 mcg 2 Puffs BID (3) Pneumonia Qualifiers: Pneumonia type: due to unspecified organism Laterality: bilateral Lung location: lower lobe of lung Qualified Code(s): J18.1 - Lobar pneumonia, unspecified organism
[2018-07-02] MEDS: predniSONE 20 MG Tablet PO SCH (22:05)
[2018-07-02] MEDS: traZODone 100 MG Tablet PO SCH (22:06)
[2018-07-03] MEDS: oxyCODONE/Acetaminophen 10/325 Tablet PO PRN ×2 (01:23→09:13)
[2018-07-03] MEDS: ALPRAZolam 0.25 MG Tablet PO PRN ×2 (01:27→08:47)
[2018-07-03] MEDS: Enoxaparin Inj 40 MG/0.4 ML Syringe SQ SCH (01:28)
[2018-07-03] MEDS: Aztreonam Inj 2 GM in Sodium Chloride 0.9% Inj 100 ML IV.SIG SCH ×3 (01:28→09:27)
[2018-07-03] MEDS: Vancomycin Inj 1,000 MG in Sodium Chlor 0.9% Inj 250 ML IV.SIG SCH ×2 (06:26→11:23)
[2018-07-03] MEDS: Morphine Inj 4 MG/ML Vial IV.PUSH PRN (06:27)
[2018-07-03] MEDS: levoFLOXacin 500 MG Tablet PO SCH (08:47)
[2018-07-03] MEDS: Sertraline 50 MG Tablet PO SCH (08:47)
[2018-07-03] MEDS: predniSONE 20 MG Tablet PO SCH (08:47)
[2018-07-03] MEDS: Famotidine PF Inj 20 MG/2 ML Vial IV.PUSH SCH (08:48)
[2018-07-03] MEDS: Senna/Docusate Sodium 8.6/50 MG Tablet PO SCH (08:48)
--- NOTE | 2018-07-03 10:59 | XR ---
EXAM DATE: 07/03/2018 10:37 AM EST AGE/SEX: 43 years / Female INDICATIONS: . Pneumonia. Patient complains of chest pain and shortness of breath. CLINICAL DATA: This is the patient's subsequent encounter. Patient reports that signs and symptoms h ave been present for 1 week and indicates a pain score of 6/10. MEDICAL/SURGICAL HISTORY: . Carcinoma, cervical. . Hysterectomy. Appendectomy. Cholecystectomy [place] [facility] [place]25/[place]. . FINDINGS: Mild patchy bilateral infiltrate again noted, most conspicuous in the right lung base. Little change from most recent previous exam. No evidence of effusion. Cardiac contours are stable. Thoracic skelet on is grossly intact. CONCLUSION: No significant change Electronically signed by: Glenroy Blevins MD 07/03/2018 10:58 AM EST
--- NOTE | 2018-07-03 11:09 | P.DS ---
Date of admission: 06/25/18 23:21 Primary care physician: UNKNOWN Brief History from admission: 43-year-old female with past medical history of COPD, cervical cancer at age 22 now s/p hysterectomy, ongoing tobacco abuse. She is visiting from [place] and states that about 2 weeks ago she developed cough, sputum production, fever, and chills. She was seen at an urgent care in [place] and she states she had a chest x-ray that showed "pneumonia in both lungs". She was prescribed azithromycin for 5 days, prednisone for 10 days and Tessalon Perles. She initially saw some improvement, but over the last 3-4 days she has had cough productive of yellow/green sputum, recurrence of fever and chills. She has also had some pain in mid chest with cough. No hemoptysis, leg pain or swelling, no prior cardiac history or history of venous thromboembolic disease. No diaphoresis, nausea, vomiting, sore throat, myalgias. She presented [facility] via [facility]. She had received albuterol en route. Chest x-ray demonstrated bibasilar opacities. She was given Levaquin 750 mg IV in the emergency department. EKG shows no ischemic changes and troponin is 0.10. She was hypoxic with room air sats in the 50s with high work of breathing. She was placed on BiPAP. Denies history of HIV or other immunosuppressed state. She is concerned that she is supposed to be on a flight tomorrow to return to [place] where her mother is supposed to start treatment for lung cancer. Discussed with her this unfortunately won't be feasible with her current condition. Patient update on day of discharge: The patient was feeling well and was anxious to go home. She was breathing well on room air. Discussed with nursing and pulmonology. DS: Diagnosis - Discharge Diagnosis (1) Pneumonia Status: Acute (2) Acute exacerbation of chronic obstructive airways disease Status: Acute DS: Medications - Discharge Medications Prescriptions: alprazolam [Xanax] 0.25 mg PO Q6H PRN #8 tab PRN Reason: Agitation levofloxacin 500 mg PO DAILY #7 tab oxycodone-acetaminophen 1 tab PO Q6H PRN #10 tab PRN Reason: Pain 3 to 6 prednisone 20 mg PO DAILY #5 tab prednisone 10 mg PO DAILY #5 tab prednisone 20 mg PO BID #10 tab DS: Summary Hospital Course: Community-acquired pneumonia/COPD exacerbation The patient had outpatient treatment failure with azithromycin. She was placed on a NRB and then a simple mask. She was started on broad spectrum antibiotics including Levaquin, vancomycin and aztreonam. Urine Legionella and pneumococcal antigens were negative. Pulmonology was consulted. She was continued on IV steroids. She received standing and as needed nebs. She received pain meds and anxiety meds as needed. She does not require oxygen per the home oxygen walk test. She will be discharged on PO Levaquin along with a prednisone taper. She will follow up with her PCP. E-FORCSE was checked prior to prescribing pain and anxiety medications at the time of discharge. Elevated troponin She had chest discomfort associated with the above. EKG with no ischemic changes or ST elevation. 2D Echo-left ventricular ejection fraction 50-55%, trace to mild MR, moderate TR, PAP 51. She was monitored on telemetry. She will follow up with her PCP. - Time Spent with Patient Total time spent providing and/or coordinating discharge services: Greater than 30 minutes - Quality: VTE Deep Vein Thrombosis/Pulmonary Embolism Present on Admission: No Exam Vital signs: Vital Signs 07/02/18 12:00 07/02/18 14:15 07/02/18 16:00 Temperature 96.7 F L 97.8 F Pulse Rate 71 89 80 Respiratory Rate 18 18 20 Blood Pressure 133/60 112/56 L Pulse Oximetry 95 95 Pulse Oximetry [Exertion on Room Air] Pulse Oximetry [Resting on Room Air] 07/02/18 19:10 07/02/18 19:11 07/02/18 21:52 Temperature Pulse Rate 62 Respiratory Rate 18 Blood Pressure Pulse Oximetry 97 Pulse Oximetry [Exertion on Room Air] 91 L Pulse Oximetry [Resting on Room Air] 95 07/03/18 00:00 07/03/18 04:00 07/03/18 08:00 Temperature 97.9 F 98.5 F 98.4 F Pulse Rate 82 58 L 60 Respiratory Rate 18 18 16 Blood Pressure 90/53 L 117/74 142/87 H Pulse Oximetry 91 L 93 L 94 L Pulse Oximetry [Exertion on Room Air] Pulse Oximetry [Resting on Room Air] 07/03/18 08:55 Temperature Pulse Rate 70 Respiratory Rate 20 Blood Pressure Pulse Oximetry Pulse Oximetry [Exertion on Room Air] Pulse Oximetry [Resting on Room Air] Intake & Output 07/02/18 07/03/18 07/03/18 18:59 06:59 18:59 Intake Total 450 / 450 1030 / 1030 250 / 250 Balance 450 / 450 1030 / 1030 250 / 250 Weight 61.2 kg Intake: IV 450 / 450 350 / 350 250 / 250 Azactam Inj 2 GM In NS Inj 100 200 / 200 100 / 100 ML @ 200 mls/hr IV.SIG Q8H [place] Rx#:[id number] Vancomycin Inj 1,000 MG In NS 250 / 250 250 / 250 250 / 250 Inj 250 ML @ 250 mls/hr IV.SIG Q8H [place] Rx#:[id number] Oral 680 / 680 Other: # Voids 3 2 Date of Last Bowel Movement 06/30/18 07/02/18 Narrative: GENERAL: NAD. HEAD: Normocephalic. NECK: Supple, trachea midline. No lymphadenopathy. EYES: No scleral icterus. No injection or drainage. CARDIOVASCULAR: Regular rate and rhythm without murmurs, gallops, or rubs. RESPIRATORY: Decreased breath sounds bilaterally, mild wheezing noted. GASTROINTESTINAL: Abdomen soft, non-tender, nondistended. MUSCULOSKELETAL: No cyanosis, or edema. SKIN: Warm and dry. NEURO: No focal neurological deficits. Results Procedures completed during hospitalization: None. Labs on day of discharge: Labs from last 24 hours 07/02/18 10:10 Sodium 138 Potassium 3.4 L Chloride 108 H Carbon Dioxide 23.7 Anion Gap 6 BUN 15 Creatinine 0.55 Estimated GFR Greater than 89 Random Glucose 72 L Calcium 8.5 - Impressions ITS Impressions Chest CT 06/28/18 00:00 CONCLUSION: 1. Combination of diffuse interstitial and groundglass alveolar infiltrates of both lungs, nonspecific. Atypical infectious etiologies and inflammatory pneumonitis would be in the differential. 2. Upper limits of normal to mildly enlarged mediastinal lymph nodes. Chest X-Ray 07/03/18 09:24 CONCLUSION: No significant change Discharge Plan - Discharge Disposition Patient Disposition: 01 Discharge Home - Discharge Condition Condition: Stable - Discharge Order Discharge Orders: Discharge Order (Routine); Ordered 07/03/18 Ordered By: Wyatt Hilton - Discharge Details Anticipated Discharge Date: 07/03/18 Discharge Comment: Follow up with your primary care doctor in one week - Physicians Team Primary Care Provider: UNKNOWN, Attending Provider: Wyatt Hilton Other Providers: Richard Ayers MD
--- NOTE | 2018-07-03 13:01 | P.PN ---
Subjective Interval history: She is doing well. Off O2 and sats 94. Less wheezing. CXR is stable . Needs F/U Physical Exam Vital signs: Vital Signs 07/02/18 14:15 07/02/18 16:00 07/02/18 19:10 Temperature 97.8 F Pulse Rate 89 80 Respiratory Rate 18 20 Blood Pressure 112/56 L Pulse Oximetry 95 97 Pulse Oximetry [Exertion on Room Air] Pulse Oximetry [Resting on Room Air] 07/02/18 19:11 07/02/18 21:52 07/03/18 00:00 Temperature 97.9 F Pulse Rate 62 82 Respiratory Rate 18 18 Blood Pressure 90/53 L Pulse Oximetry 91 L Pulse Oximetry [Exertion on Room Air] 91 L Pulse Oximetry [Resting on Room Air] 95 07/03/18 04:00 07/03/18 08:00 07/03/18 08:55 Temperature 98.5 F 98.4 F Pulse Rate 58 L 60 70 Respiratory Rate 18 16 20 Blood Pressure 117/74 142/87 H Pulse Oximetry 93 L 94 L Pulse Oximetry [Exertion on Room Air] Pulse Oximetry [Resting on Room Air] 07/03/18 12:00 Temperature 98.6 F Pulse Rate 96 H Respiratory Rate 16 Blood Pressure 120/74 Pulse Oximetry 93 L Pulse Oximetry [Exertion on Room Air] Pulse Oximetry [Resting on Room Air] Intake & Output 07/02/18 07/03/18 07/03/18 18:59 06:59 18:59 Intake Total 450 / 450 1030 / 1030 250 / 250 Balance 450 / 450 1030 / 1030 250 / 250 Weight 61.2 kg Intake: IV 450 / 450 350 / 350 250 / 250 Azactam Inj 2 GM In NS Inj 100 200 / 200 100 / 100 ML @ 200 mls/hr IV.SIG Q8H [place] Rx#:[id number] Vancomycin Inj 1,000 MG In NS 250 / 250 250 / 250 250 / 250 Inj 250 ML @ 250 mls/hr IV.SIG Q8H [place] Rx#:[id number] Oral 680 / 680 Other: # Voids 3 2 Date of Last Bowel Movement 06/30/18 07/02/18 07/02/18 Narrative: GENERAL:Thin mid aged W/F in NAD. HEAD: Normocephalic. NECK: Supple, trachea midline. No lymphadenopathy. EYES: No scleral icterus. No injection or drainage. CARDIOVASCULAR: Regular rate and rhythm without murmurs, gallops, or rubs. RESPIRATORY: Decreased breath sounds bilaterally, mild wheezing noted. GASTROINTESTINAL: Abdomen soft, non-tender, nondistended. MUSCULOSKELETAL: No cyanosis, or edema. SKIN: Warm and dry. NEURO: No focal neurological deficits. Results - Labs CBC & Chem 7: 07/02/18 10:10 07/02/18 10:10 - Imaging Impressions Chest X-Ray 07/03/18 09:24 CONCLUSION: No significant change - Procedures None. Assessment and Plan - Assessment (1) COPD (chronic obstructive pulmonary disease) Code(s): J44.9 - Chronic obstructive pulmonary disease, unspecified Status: Acute (2) Nicotine dependence Code(s): F17.200 - Nicotine dependence, unspecified, uncomplicated Status: Acute (3) Pneumonia Code(s): J18.9 - Pneumonia, unspecified organism Status: Acute (4) Acute exacerbation of chronic obstructive airways disease Code(s): J44.1 - Chronic obstructive pulmonary disease with (acute) exacerbation Status: Acute (5) Elevated troponin Code(s): R74.8 - Abnormal levels of other serum enzymes Status: Acute - Plan 1. D/C O2 2. OK to go home 3. Add ventolin HFA , 2puffs TID PRN 4. Duoneb nebs qid. 5. Add prednisone 20 mg BID and taper over 3 weeks 6. Tessalon Perles 100 mg TID PRN. 7. Symbicort 160/4.5 mcg 2 Puffs BID 8. Adv to see family MD in 2 weeks and get a CXR 9. Continue antibiotic for 1 week. (3) Pneumonia Qualifiers: Pneumonia type: due to unspecified organism Laterality: bilateral Lung location: lower lobe of lung Qualified Code(s): J18.1 - Lobar pneumonia, unspecified organism
== END 2018-07-03 14:45 | disposition home or self-care (01) ==
LOC: NEPE 19:49 → NEDA 23:21 → HIMC 06-26 00:30 → H7ONC 07-02 10:33
PROVIDERS: ADMIT Hospitalist; ATTEND Hospitalist